=== PATIENT | male | born 1975 | race Caucasian/White ===

== ENCOUNTER 2018-03-17 12:15 | Outpatient (REF) | payer OTHER, SELFPAY ==
[2018-03-17 13:19] LABS: Bilirubin Negative (Negative); Blood Negative (Negative); Clarity Clear; Glucose Negative (Negative); Ketones Negative (Negative); Leukocyte Esterase Moderate (Negative); Nitrite Positive (Negative); Specific Gravity 1.015 (1.005-1.025); Urobilinogen 0.2 EU/dL (Up TO 0.2)
[2018-03-17 13:34] LABS: Bacteria Packed HPF (Negative); WBC >50 HPF (0-5)
[2018-03-17 13:35] LABS: C & S Indicated? Yes
== END 2018-03-17 12:35 ==
LOC: LBN 12:15
PROVIDERS: PCP Family Medicine; Visit Provider Family Medicine
DX: R82.90 Unspecified abnormal findings in urine (principal)
CPT/HCPCS: 87077; 81003; 81015; 87086; 87186

== ENCOUNTER 2018-06-07 10:47 | Outpatient (REF) | payer OTHER, SELFPAY ==
[2018-06-07 11:54] LABS: Bilirubin Negative (Negative); Blood Trace-intact (Negative); Clarity Cloudy; Glucose Negative (Negative); Ketones Negative (Negative); Leukocyte Esterase Large (Negative); Nitrite Positive (Negative); Urobilinogen 0.2 EU/dL (Up TO 0.2)
[2018-06-07 12:04] LABS: Bacteria Many HPF (Negative); C & S Indicated? Yes; Casts Negative LPF (Negative); Crystals Negative HPF (Negative); Epithelial Cells Negative HPF (Negative); Mucus Negative (Negative); Other Cells Few Transitional (Negative); RBC >50 (0-2); WBC >50 HPF (0-5)
== END 2018-06-07 11:07 ==
LOC: LBN 10:47
PROVIDERS: PCP Family Medicine; Visit Provider Family Medicine
DX: R30.0 Dysuria (principal); R82.90 Unspecified abnormal findings in urine
CPT/HCPCS: 87077; 81003; 81015; 87086; 87186

== ENCOUNTER 2018-07-29 12:38 | Outpatient (REF) | payer OTHER, SELFPAY ==
[2018-07-29 14:20] LABS: Bilirubin Negative (Negative); Blood Trace-intact (Negative); Clarity Sl Cloudy; Glucose Negative (Negative); Ketones Negative (Negative); Leukocyte Esterase Moderate (Negative); Nitrite Positive (Negative); Urobilinogen 0.2 EU/dL (Up TO 0.2)
[2018-07-29 14:37] LABS: Bacteria Many HPF (Negative); Crystals Negative HPF (Negative); Epithelial Cells Few HPF (Negative); Mucus Trace (Negative); WBC >50 HPF (0-5)
[2018-07-29 14:38] LABS: C & S Indicated? Yes
== END 2018-07-29 12:58 ==
LOC: LBN 12:38
PROVIDERS: PCP Family Medicine; Visit Provider Family Medicine
DX: R35.0 Frequency of micturition (principal)
CPT/HCPCS: 87077; 81003; 81015; 87086; 87186

== ENCOUNTER 2018-08-15 09:48 | Outpatient (CLI) | payer OTHER, SELFPAY ==
[2018-08-15 12:24] LABS: HCT 43.9 % (40.0-50.0); HGB 14.6 g/dL (13.5-17.5); Mean Corp. HGB Concentration 33.3 g/dL (32.0-36.0); Mean Corpuscular Volume 87.1 fL (80-95); Mean Platelet Volume 9.8 fL (8.0-11.0); Platelet Count 178 x1000/uL (130-400); RBC 5.04 m/cumm (4.50-6.00); RBC Distribution Width 12.8 % (11.8-14.1); White Blood Cell Count 4.27 k/cumm (4.4-10.8)
[2018-08-15 14:09] LABS: ALT 18 U/L (12-78); AST 18 U/L (15-37); Albumin 3.8 g/dL (3.4-5.0); Alkaline Phosphatase 115 U/L (46-116); Anion Gap 7.3 mmol/L (3-11); BUN 13 mg/dL (7-18); Bilirubin, Total 0.4 mg/dL (0.2-1.0); CO2 30.7 mmol/L (21.0-32.0); CREATININE 1.15 mg/dL (0.70-1.30); Calcium 9.5 mg/dL (8.5-10.1); Chloride 103 mmol/L (98-107); Cholesterol 190 mg/dL (50-200); Glucose 91 mg/dL (70-100); HDL Cholesterol 67 mg/dL (40-60); LDL CHOLESTEROL 108 mg/dL (<100); Potassium 4.5 mmol/L (3.5-5.1); Sodium 141 mmol/L (136-145); TSH (W/Ref FT4) 7.92 uIU/mL (0.358-3.74); Total Protein 7.4 g/dL (6.4-8.2); Triglyceride 54 mg/dL (30-150)
[2018-08-15 14:35] LABS: FREE T4 0.92 ng/dL (0.76-1.46)
== END 2018-08-15 10:08 ==
PROVIDERS: PCP Family Medicine; Visit Provider Family Medicine
DX: Z00.00 Encounter for general adult medical examination without abnormal findings (principal); I10 Essential (primary) hypertension; N39.0 Urinary tract infection, site not specified
CPT/HCPCS: 36415; 80053; 80061; 83721; 85027; 84439; 84443

== ENCOUNTER 2018-10-30 12:11 | Outpatient (REF) | payer OTHER, SELFPAY ==
[2018-10-30 13:42] LABS: Bilirubin Negative (Negative); Blood Negative (Negative); Clarity Clear; Glucose Negative (Negative); Ketones Negative (Negative); Leukocyte Esterase Moderate (Negative); Nitrite Negative (Negative); Urobilinogen 0.2 EU/dL (Up TO 0.2)
[2018-10-30 13:52] LABS: Bacteria Moderate HPF (Negative); C & S Indicated? Yes; Casts Negative LPF (Negative); Crystals Negative HPF (Negative); Epithelial Cells Few HPF (Negative); Mucus Negative (Negative); RBC Negative (0-2); WBC 20-50 HPF (0-5)
== END 2018-10-30 12:31 ==
LOC: LBN 12:11
PROVIDERS: PCP Family Medicine; Visit Provider Family Medicine
DX: N39.0 Urinary tract infection, site not specified (principal)
CPT/HCPCS: 87077; 81003; 81015; 87086; 87186

== ENCOUNTER 2018-11-18 18:52 | Outpatient (REF) | payer OTHER, SELFPAY ==
[2018-11-18 19:55] LABS: Bilirubin Negative (Negative); Blood Negative (Negative); Clarity Clear; Glucose Negative (Negative); Ketones Negative (Negative); Leukocyte Esterase Trace (Negative); Nitrite Positive (Negative); pH 7.5 (5-8)
[2018-11-18 20:26] LABS: Bacteria Many HPF (Negative); C & S Indicated? Yes; Casts Negative LPF (Negative); Crystals Negative HPF (Negative); Epithelial Cells Negative HPF (Negative); Mucus Negative (Negative); RBC Negative (0-2); WBC 20-50 HPF (0-5)
== END 2018-11-18 19:12 ==
LOC: LBN 18:52
PROVIDERS: PCP Family Medicine; Visit Provider Family Medicine
DX: R30.0 Dysuria (principal)
CPT/HCPCS: 87077; 81003; 81015; 87086; 87186

== ENCOUNTER 2018-12-27 19:57 | Outpatient (REF) | payer OTHER, SELFPAY ==
[2018-12-27 19:22] LABS: Bilirubin Negative (Negative); Blood Negative (Negative); Clarity Sl Cloudy (Clear); Glucose Negative (Negative); Ketones Negative (Negative); Leukocyte Esterase Trace (Negative); Nitrite Positive (Negative); Specific Gravity 1.015 (1.005-1.025); Urobilinogen 0.2 EU/dL (Up TO 0.2); pH 6.5 (5-8)
[2018-12-27 20:11] LABS: Bacteria Many HPF (Negative); Epithelial Cells Negative HPF (Negative); Other Cells Negative (Negative); RBC Negative (0-2); WBC 20-50 HPF (0-5)
[2018-12-27 20:12] LABS: C & S Indicated? Yes; Crystals Negative HPF (Negative); Mucus Negative (Negative)
== END 2018-12-27 20:17 ==
LOC: LBN 19:57
PROVIDERS: PCP Family Medicine; Visit Provider Family Medicine
DX: R35.0 Frequency of micturition (principal); R82.90 Unspecified abnormal findings in urine
CPT/HCPCS: 87077; 81003; 81015; 87086; 87186

== ENCOUNTER 2019-04-21 19:21 | Outpatient (REF) | payer OTHER, SELFPAY ==
[2019-04-21 18:45] LABS: Bilirubin Negative (Negative); Blood Negative (Negative); Clarity Sl Cloudy (Clear); Glucose Negative (Negative); Ketones Negative (Negative); Leukocyte Esterase Small (Negative); Nitrite Negative (Negative); Urobilinogen 0.2 EU/dL (Up TO 0.2)
[2019-04-21 19:50] LABS: Bacteria Moderate HPF (Negative); C & S Indicated? Yes; Casts Negative LPF (Negative); Crystals Negative HPF (Negative); Epithelial Cells Few HPF (Negative); Mucus Negative (Negative); Other Cells Negative (Negative); RBC Negative (0-2)
== END 2019-04-21 19:41 ==
LOC: NCHCN 19:21
PROVIDERS: PCP Family Medicine; Visit Provider Family Medicine
DX: R35.0 Frequency of micturition (principal); R39.15 Urgency of urination
CPT/HCPCS: 87077; 81003; 81015; 87086; 87186

== ENCOUNTER 2019-08-03 14:35 | Outpatient (REF) | payer OTHER, SELFPAY ==
[2019-08-03 16:02] LABS: Bilirubin Negative (Negative); Blood Small (Negative); Clarity Clear (Clear); Glucose Negative (Negative); Ketones Negative (Negative); Leukocyte Esterase Large (Negative); Nitrite Negative (Negative); Specific Gravity 1.015 (1.005-1.025); Urobilinogen 0.2 EU/dL (Up TO 0.2); pH 6.5 (5-8)
[2019-08-03 16:37] LABS: Bacteria Moderate HPF (Negative); C & S Indicated? Yes; WBC >50 HPF (0-5)
== END 2019-08-03 14:55 ==
LOC: LBN 14:35
PROVIDERS: PCP Family Medicine; Visit Provider Family Medicine
DX: R35.0 Frequency of micturition (principal)
CPT/HCPCS: 87077; 81003; 81015; 87086; 87186

== ENCOUNTER 2019-08-21 09:50 | Outpatient (CLI) | payer OTHER, SELFPAY ==
[2019-08-21 13:07] LABS: Absolute Lymphocyte Count 1.76 k/cumm (1.2-3.4); Absolute Monocyte Count 0.48 k/cumm (0.11-0.7); Absolute Neutrophil Count 3.76 k/cumm (1.2-6.7); HCT 44.4 % (40.0-50.0); HGB 15.3 g/dL (13.5-17.5); Lymphocytes % 29.3; Mean Corp. HGB Concentration 34.5 g/dL (32.0-36.0); Mean Corpuscular Hemoglobin 29.4 pg (27.0-33.0); Mean Corpuscular Volume 85.2 fL (80-95); Mean Platelet Volume 10.2 fL (8.0-11.0); Neutrophils % 62.7; Platelet Count 190 x1000/uL (130-400); RBC 5.21 m/cumm (4.50-6.00); RBC Distribution Width 12.7 % (11.8-14.1)
[2019-08-21 13:29] LABS: Vitamin D 25 Total 19.2 ng/ml (30-100)
[2019-08-21 13:47] LABS: ALT 24 U/L (16-63); AST 20 U/L (15-37); Albumin 3.9 g/dL (3.4-5.0); Alkaline Phosphatase 121 U/L (46-116); Anion Gap 10.9 mmol/L (3-11); BUN 13 mg/dL (7-18); Bilirubin, Total 0.3 mg/dL (0.2-1.0); CO2 28.1 mmol/L (21.0-32.0); CREATININE 0.99 mg/dL (0.70-1.30); Calcium 8.9 mg/dL (8.5-10.1); Chloride 103 mmol/L (98-107); Glucose 91 mg/dL (74-106); Potassium 4.2 mmol/L (3.5-5.1); Sodium 142 mmol/L (136-145); TSH (W/Ref FT4) 10.39 uIU/mL (0.36-3.74); Total Protein 7.1 g/dL (6.4-8.2)
[2019-08-21 14:07] LABS: FREE T4 1.03 ng/dL (0.76-1.46)
== END 2019-08-21 10:10 ==
PROVIDERS: PCP Family Medicine; Visit Provider Family Medicine
DX: I10 Essential (primary) hypertension (principal); N39.0 Urinary tract infection, site not specified; R79.89 Other specified abnormal findings of blood chemistry; Z00.00 Encounter for general adult medical examination without abnormal findings
CPT/HCPCS: 36415; 80053; 82306; 84439; 84443; 85025

== ENCOUNTER 2020-08-28 01:07 | Outpatient (CLI) | payer OTHER, SELFPAY ==
--- NOTE | 2020-08-28 13:50 | DI.RAD_ITS ---
EXAM: XR SHOULDER RT COMPLETE 2+V CLINICAL HISTORY: r shoulder pain/tingling - wheelchair bound,M25.511. TECHNIQUE: 2D digital imaging was performed. COMPARISON: CR LEFT SHOULDER COMPLETE from 07/29/2015 FINDINGS: There is no evidence of fracture or dislocation or abnormal soft tissue calcifications. Subacromial space is normal in the height. AC joint appears unremarkable. No degenerative changes evident in ei ther joint and the coracoid process is intact. No ominous osseous lesions evident. IMPRESSION: DATA REPOSITORY: RADIATION DOSE DELIVERED:
== END 2020-08-28 01:08 ==
LOC: DI 01:08
PROVIDERS: PCP Family Medicine; Visit Provider Family Medicine
DX: M25.511 Pain in right shoulder (principal)
CPT/HCPCS: 73030

== ENCOUNTER 2020-09-23 03:26 | Outpatient (CLI) | payer OTHER, SELFPAY ==
[2020-09-24 14:30] LABS: COVID-19 RT-PCR UVMMC Result Negative (Negative)
== END 2020-09-23 03:27 | disposition home or self-care (01) ==
LOC: LBO 03:26
PROVIDERS: PCP Family Medicine; Visit Provider Family Medicine
DX: Z20.828 Contact with and (suspected) exposure to other viral communicable diseases (principal)
CPT/HCPCS: U0003

== ENCOUNTER 2020-09-26 02:37 | Outpatient (CLI) | payer OTHER, SELFPAY ==
[2020-09-27 12:34] LABS: COVID-19 RT-PCR UVMMC Result Negative (Negative)
== END 2020-09-26 02:38 | disposition home or self-care (01) ==
LOC: LBO 02:37
PROVIDERS: PCP Family Medicine; Visit Provider Family Medicine
DX: Z20.828 Contact with and (suspected) exposure to other viral communicable diseases (principal)
CPT/HCPCS: U0003

== ENCOUNTER 2020-10-01 03:18 | Outpatient (CLI) | payer OTHER, SELFPAY ==
[2020-10-02 15:52] LABS: COVID-19 RT-PCR UVMMC Result Negative (Negative)
== END 2020-10-01 03:19 | disposition home or self-care (01) ==
LOC: LBO 03:19
PROVIDERS: PCP Family Medicine; Visit Provider Family Medicine
DX: Z20.828 Contact with and (suspected) exposure to other viral communicable diseases (principal)
CPT/HCPCS: U0003

== ENCOUNTER 2021-07-17 17:58 | Outpatient (REF) | payer OTHER, SELFPAY ==
[2021-07-17 19:23] LABS: Bilirubin Negative (Negative); Blood Moderate (Negative); Clarity Sl Cloudy (Clear); Glucose Negative (Negative); Ketones Negative (Negative); Leukocyte Esterase Large (Negative); Nitrite Negative (Negative); Urobilinogen 0.2 EU/dL (Up TO 0.2); pH 6.5 (5-8)
[2021-07-17 19:42] LABS: Bacteria Many HPF (Negative); C & S Indicated? Yes; WBC >50 HPF (0-5)
== END 2021-07-17 17:59 | disposition home or self-care (01) ==
LOC: LBN 17:58
PROVIDERS: PCP Family Medicine; Visit Provider Family Medicine
DX: R35.0 Frequency of micturition (principal); R39.15 Urgency of urination; R82.90 Unspecified abnormal findings in urine
CPT/HCPCS: 87077; 81003; 81015; 87086; 87186

== ENCOUNTER 2022-01-26 09:42 | Outpatient (CLI) | payer OTHER, SELFPAY ==
[2022-01-26 12:19] LABS: Abs Immature Grans 0.03 10^3/uL (0.0-0.06); Absolute Basophil Count 0.01 10^3/uL (0.0-0.2); Absolute Lymphocyte Count 1.91 10^3/uL (1.2-3.4); Absolute Monocyte Count 1.07 10^3/uL (0.1-0.8); Absolute Neutrophil Count 6.57 10^3/uL (1.2-6.7); Basophils % 0.1; HCT 44.8 % (40.0-50.0); HGB 15.3 g/dL (13.5-17.5); Immature Grans % 0.3; Lymphocytes % 19.9; MCHC 34.2 % (32.0-36.0); MCV 88 fL (80-95); MPV 10.2 fL (8.0-11.0); Monocytes % 11.2; Neutrophils % 68.5; Platelet Count 204 10^3/uL (130-400); RDW 13.2 % (11.8-14.1); RDW-SD 42.6 fL; WBC 9.59 10^3/uL (4.4-10.8)
[2022-01-26 12:44] LABS: ALT 23 U/L (16-63); AST 25 U/L (15-37); Albumin 3.5 g/dL (3.4-5.0); Alkaline Phosphatase 109 U/L (46-116); Anion Gap 8.2 mmol/L (3-11); BUN 22 mg/dL (7-18); Bilirubin, Total 0.4 mg/dL (0.2-1.0); CO2 28.8 mmol/L (21.0-32.0); CREATININE 1.3 mg/dL (0.70-1.30); Calcium 9.2 mg/dL (8.5-10.1); Chloride 103 mmol/L (98-107); Estimated GFR 59.43 (mL/min/1.73m2); Glucose 106 mg/dL (74-106); Potassium 4.1 mmol/L (3.5-5.1); Sodium 140 mmol/L (136-145); TSH (W/Ref FT4) 12.19 uIU/mL (0.36-3.74); Total Protein 7.3 g/dL (6.4-8.2)
[2022-01-26 13:09] LABS: FREE T4 0.87 ng/dL (0.76-1.46)
== END 2022-01-26 09:43 | disposition home or self-care (01) ==
LOC: LOS 09:43
PROVIDERS: PCP Family Medicine; Visit Provider Family Medicine
DX: R00.0 Tachycardia, unspecified (principal); R01.1 Cardiac murmur, unspecified
CPT/HCPCS: 36415; 80053; 84439; 84443; 85025

== ENCOUNTER 2022-02-06 02:01 | Outpatient (RCR) | payer OTHER, SELFPAY ==
--- NOTE | 2022-02-06 14:45 | HOLTER_ITS ---
APPROVED REPORT Conclusion This is a 48-hour Holter monitor ordered for tachycardia Predominant rhythm was sinus. Average heart rate was 84. Minimum was 50, maximum 124 There were very rare isolated atrial and ventricular ectopic beats There was no atrial fibrillation, no high-grade AV block, no pauses greater than 3 seconds No patient symptoms were reported
== END 2022-03-04 23:59 | disposition home or self-care (01) ==
LOC: RT 02:01
PROVIDERS: PCP Family Medicine; Visit Provider Family Medicine
DX: R00.0 Tachycardia, unspecified (principal); R01.1 Cardiac murmur, unspecified
CPT/HCPCS: 93225; 93226

== ENCOUNTER → 2022-03-03 00:55 | Outpatient (CLI) | payer OTHER, SELFPAY ==
--- NOTE | 2022-03-03 16:02 | DI.US_ITS ---
APPROVED REPORT EXAM: Comprehensive 2D, Doppler, and color-flow Echocardiogram Patient Location: Out-Patient Equal Opportunity Representative: Naomi Cope RDCS (AE) Indications: Edema, Murmur, Tachycardia Other Information Study Quality: Adequate Conclusion Technically difficult but adequate study Normal left ventricular wall thickness and chamber size. Estimated ejection fraction is 60%. Wall m otion is normal Normal right ventricular size and systolic function Both atria are normal in size Aortic valve is trileaflet and mildly sclerotic without stenosis or regurgitation There are no additional structural or hemodynamically significant valvular abnormalities Wall motion Left Ventricle The left ventricle is normal size. The left ventricular systolic function is normal. The left ventric ular ejection fraction is within the normal range. There is normal left ventricular wall thickness. T here is normal LV segmental wall motion. There is no ventricular septal defect visualized. LVEF is 60 %. Right Ventricle The right ventricle is normal size. The right ventricular systolic function is normal. Atria The left atrium size is normal. The right atrium size is normal. The interatrial septum is intact wit h no evidence for an atrial septal defect. Aortic Valve Aortic valve is trileaflet and mildly sclerotic There is no aortic valvular stenosis. No aortic regur gitation is present. Mitral Valve The mitral valve is normal in structure. No evidence of mitral valve stenosis. Trace mitral regurgita tion. Tricuspid Valve The tricuspid valve is normal in structure. There is no tricuspid valve stenosis. Trace tricuspid reg urgitation. Unable to assess PA pressure. Pulmonic Valve Pulmonic valve is not well visualized. There is no pulmonic valvular stenosis. There is no pulmonic v alvular regurgitation. Great Vessels The aortic root is normal in size. Ascending aorta is not well visualized. Aortic arch is not well vi sualized. IVC is normal in size and collapses >50% with inspiration. Pericardium There is no pericardial effusion. 2D Dimensions IVSD d PLAX 0.76 cm M: 0.6-1.2 LV Vol A2C d MOD 102.1 mL LVPW d PLAX 0.75 cm M: 0.6 - 1.2 LV Vol A4C d MOD 79.6 mL LVID d PLAX 4.30 cm M: 4.2 - 5.8 LA vol/ BSA A2C s A-L 16.5 mL/m2 LVDs 2.85 cm M: 2.5 - 4.0 LA vol/ BSA A4C s A-L 9.9 mL/m2 Ao Root d 2.73 cm M: 3.1 - 3.7 LA Vol/ BSA Biplane s A-L 13.2 mL/m2 RA Area A4C 8.81 cm2 LA Area A4C s MOD 9.61 cm2 RA Vol/ BSA A4C s A-L 8.8 mL/m2 LA Area A2C s MOD 12.80 cm2 LV EF Teichholz 62.6 % LV EF A4C MOD 59.9 % LVEF (Ibarra's) 60.38 % M: 52 - 72 LV EF A2C MOD 59.8 % LV Volume 69.79 mL M: 62 - 150 LV EF Biplane MOD 60.4 % LV Volume Index 36.34 mL/m2 M: 34 - 74 SV 55.38 mL LV Vol Biplane MOD 91.7 mL SV Index 28.89 mL/m2 FS 33.50 % M-Mode TAPSE 1.80 cm (M/F) >1.7 LV Diastology MV E' medial 0.106 (>0.07 m/s) E/A Ratio 1.1 LV E/e MED 7.85 (<14) MV E Vmax 0.84 (0.4-1.3 m/s) MV E' lateral 0.138 (>0.1 m/s) MV A Vmax 0.75 (0.4-1.3 m/s) LV E/e LAT 6.05 (<14) MV E/A Ratio 1.05 MV E/E' medial 7.87 MV E/E' lateral 6.06 Aortic Valve LVOT Area 3.16 cm2 AoV Area Vmax 2.95 cm2 LVOT Vmax 1.26 m/s AoV Area/ BSA (Vmax) 1.54 cm2/m2 LVOT Mean Sergei. 0.84 m/s ROSAURA Mean Sergei. 2.82 cm2 LVOT Peak Grad 6.3 mmHg ROSAURA Mean Sergei. Index 1.47 cm2/m2 LVOT Mean Grad 3.2 mmHg LVOT VTI 0.216 m LVOT Diam s 2.00 cm AoV Vmax 1.35 m/s Velocity Ratio 0.93 AoV Mean Sergei. 0.94 m/s AoV Peak Grad 7.3 mmHg LVOT SV 68.34 mL AoV Mean Grad 3.9 mmHg AoV VTI 0.223 m AoV Area VTI 3.06 cm2 AoV Area/ BSA (VTI) 1.60 cm/m2 Mitral Valve MV DT 353 (160-240 msec) MV PHT 102 msec MV Area PHT 2.15 cm2 Pulmonary Valve RVOT Peak Gr. 2.58 mmHg RVOT Mean Gr. 1.75 mmHg RVOT VTI 0.142 m RVOT Vmax 0.80 m/s
== END ==
PROVIDERS: PCP Family Medicine; Visit Provider Family Medicine
DX: R00.0 Tachycardia, unspecified (principal); R01.1 Cardiac murmur, unspecified
CPT/HCPCS: 93306

== ENCOUNTER 2023-04-28 12:09 | Outpatient (REF) | payer OTHER, SELFPAY ==
[2023-04-28 13:54] LABS: Bilirubin Negative (Negative); Blood Negative (Negative); Clarity Clear (Clear); Glucose Negative (Negative); Ketones Negative (Negative); Leukocyte Esterase Negative (Negative); Nitrite Negative (Negative); Specific Gravity 1.015 (1.005-1.025); Urobilinogen 0.2 mg/dL (Up to 0.2); pH 7.5 (5-8)
== END 2023-04-28 12:10 | disposition home or self-care (01) ==
LOC: LBN 12:09
PROVIDERS: PCP Family Medicine; Visit Provider Family Medicine
DX: M54.9 Dorsalgia, unspecified (principal)
CPT/HCPCS: 81003

== ENCOUNTER 2023-06-18 15:37 | Outpatient (REF) | payer OTHER, SELFPAY ==
[2023-06-18 13:47] LABS: Bilirubin Negative (Negative); Blood Trace-intact (Negative); Clarity Cloudy (Clear); Glucose Negative (Negative); Ketones Negative (Negative); Leukocyte Esterase Large (Negative); Nitrite Negative (Negative); Specific Gravity <= 1.005 (1.005-1.025); Urobilinogen 0.2 mg/dL (Up to 0.2)
[2023-06-18 14:06] LABS: Bacteria Moderate HPF (Negative); C & S Indicated? Yes; Casts Negative LPF (Negative); Crystals Negative HPF (Negative); Epithelial Cells Rare HPF (Negative); Mucus Negative (Negative); WBC >50 HPF (0-5)
== END 2023-06-18 15:38 | disposition home or self-care (01) ==
LOC: LBN 15:37
PROVIDERS: PCP Family Medicine; Visit Provider Family Medicine
DX: R35.0 Frequency of micturition (principal)
CPT/HCPCS: 87077; 81003; 81015; 87086; 87186

== ENCOUNTER → 2023-07-27 03:04 | Outpatient (CLI) | payer OTHER, SELFPAY ==
--- NOTE | 2023-07-27 09:45 | DI.RAD_ITS ---
Exam(s) XR SHOULDER RT COMPLETE 2+V EXAM: XR SHOULDER RT COMPLETE 2+V CLINICAL HISTORY: shoulder pain,M25.519. TECHNIQUE: 2D digital imaging was performed of the right shoulder. Five images were obtained. AP, Grashey, Y-view and axillary views were obtained. COMPARISON: CR XR SHOULDER RT COMPLETE 2+V from 08/28/2020 FINDINGS: BONES: No acute fracture is present. No bony destructive lesion is seen. JOINTS: No dislocation present. The acromioclavicular and glenohumeral joints are unremarkable. SOFT TISSUE: The visualized lung diallo are clear. IMPRESSION: Unremarkable radiographs of the right shoulder. DATA REPOSITORY: RADIATION DOSE DELIVERED:
--- NOTE | 2023-07-27 09:53 | DI.RAD_ITS ---
Exam(s) XR SHOULDER LT COMPLETE 2+V EXAM: XR SHOULDER LT COMPLETE 2+V CLINICAL HISTORY: shoulder pain,M25.519. TECHNIQUE: 2D digital imaging was performed of the left shoulder. Six images were obtained. AP, Gr ashey, Y-view and axillary views were obtained. COMPARISON: CR LEFT SHOULDER COMPLETE from 07/29/2015 FINDINGS: BONES: No acute fracture is present. No bony destructive lesion is seen. JOINTS: No dislocation present. The acromioclavicular and glenohumeral joints are unremarkable. SOFT TISSUE: Visualized lungs are clear. IMPRESSION: Unremarkable radiographs of the left shoulder. DATA REPOSITORY: RADIATION DOSE DELIVERED:
== END ==
PROVIDERS: PCP Family Medicine; Visit Provider Family Medicine
DX: M25.511 Pain in right shoulder (principal); M25.512 Pain in left shoulder
CPT/HCPCS: 73030

== ENCOUNTER 2023-08-10 11:30 | Outpatient (REF) | payer OTHER, SELFPAY ==
[2023-08-10 12:42] LABS: Bilirubin Negative (Negative); Blood Negative (Negative); Clarity Sl Cloudy (Clear); Glucose Negative (Negative); Ketones Negative (Negative); Leukocyte Esterase Moderate (Negative); Nitrite Negative (Negative); Specific Gravity 1.015 (1.005-1.025); Urobilinogen 0.2 mg/dL (Up to 0.2)
[2023-08-10 12:56] LABS: Bacteria Few HPF (Negative); C & S Indicated? Yes; Casts Negative LPF (Negative); Crystals Negative HPF (Negative); Epithelial Cells Rare HPF (Negative); Mucus Negative (Negative); RBC 0-2 HPF (0-2)
== END 2023-08-10 11:31 | disposition home or self-care (01) ==
LOC: LBN 11:30
PROVIDERS: PCP Family Medicine; Visit Provider Family Medicine
DX: R35.0 Frequency of micturition (principal)
CPT/HCPCS: 87077; 81003; 81015; 87086; 87186

== ENCOUNTER → 2023-09-08 01:31 | Outpatient (CLI) | payer OTHER, SELFPAY ==
--- NOTE | 2023-09-08 09:55 | DI.MRI_ITS ---
Exam(s) MR UPPER JOINT LT WO EXAM: MR UPPER JOINT LT WO CLINICAL HISTORY: SHOULDER PAIN,bilat, m25.519. TECHNIQUE: Multiplanar multisequence MRI was performed. COMPARISON: Plain films 27 July 2023 FINDINGS: Exam somewhat limited by motion. BONES: There is no fracture or contusion pattern. JOINTS:The acromioclavicular joint is normal. The glenohumeral joint is normal. TENDONS: Supraspinatus: Some edema within tendon consistent with partial tear or tendinitis. Infraspinatus: Unremarkable. Subscapularis: Unremarkable. Teres Minor: Unremarkable. Biceps and [place]: Some fluid within biceps tendon sheath but no tendon abnormality. MUSCLES: Unremarkable. GLENOID LABRUM: Unremarkable on this noncontrast examination. SOFT TISSUES: Unremarkable. OTHER: Subacromial and subdeltoid bursae shows mild edema. Small amount of fluid in sub coracoid bu rsa.. IMPRESSION: Supraspinatus tendinitis versus partial tear. DATA REPOSITORY:
--- NOTE | 2023-09-08 10:30 | DI.MRI_ITS ---
Exam(s) MR UPPER JOINT RT WO EXAM: MR UPPER JOINT RT WO CLINICAL HISTORY: SHOULDER PAIN,bilat, m25.519. TECHNIQUE: Multiplanar multisequence MRI was performed. COMPARISON: Plain films July 28 FINDINGS: BONES: There is no fracture or contusion pattern. Small degenerative cysts in the humeral head post erior superiorly as well as at the lesser tuberosity. JOINTS:The acromioclavicular joint shows mild degenerative changes and a small amount of fluid. The glenohumeral joint is normal. TENDONS: Supraspinatus: Mildly increased signal distally could indicate tendinitis or partial tear. Infraspinatus: Unremarkable. Subscapularis: Unremarkable. Teres Minor: Unremarkable. Biceps and [place]: Thickening and in some edema in the proximal biceps tendon as it passes at the ant erosuperior aspect of the humeral head. Some fluid in the biceps tendon sheath. MUSCLES: Unremarkable. GLENOID LABRUM: Unremarkable on this noncontrast examination. SOFT TISSUES: Unremarkable. OTHER: Subacromial and subdeltoid bursae shows mild edema. Small amount of fluid in subcoracoid burs a. . IMPRESSION: Tendinitis versus partial tear of distal anterior supraspinatus tendon. Tendinosis of superior bicep s tendon. DATA REPOSITORY:
== END ==
PROVIDERS: PCP Family Medicine; Visit Provider Student in an Organized Health Care Education/Training Program
DX: M75.22 Bicipital tendinitis, left shoulder (principal); M75.21 Bicipital tendinitis, right shoulder
CPT/HCPCS: 73221

== ENCOUNTER 2023-11-22 10:21 | Outpatient (REF) | payer OTHER, SELFPAY ==
[2023-11-22 12:38] LABS: Bilirubin Negative (Negative); Blood Trace-intact (Negative); Clarity Sl Cloudy (Clear); Glucose Negative (Negative); Ketones Negative (Negative); Leukocyte Esterase Moderate (Negative); Nitrite Negative (Negative); Urobilinogen 0.2 mg/dL (Up to 0.2)
[2023-11-22 13:55] LABS: Bacteria Few HPF (Negative); C & S Indicated? Yes; Casts Negative LPF (Negative); Crystals Negative HPF (Negative); Epithelial Cells Negative HPF (Negative); Mucus Negative (Negative); Other Cells Negative (Negative); RBC 0-2 HPF (0-2); WBC >50 HPF (0-5)
== END 2023-11-22 10:22 | disposition home or self-care (01) ==
LOC: LBN 10:21
PROVIDERS: PCP Family Medicine; Visit Provider Family Medicine
DX: R82.89 Other abnormal findings on cytological and histological examination of urine (principal); N39.0 Urinary tract infection, site not specified
CPT/HCPCS: 81003; 81015; 87086

== ENCOUNTER 2024-03-15 08:54 | Outpatient (REF) | payer OTHER, SELFPAY ==
[2024-03-15 13:50] LABS: Bilirubin Negative (Negative); Blood Large (Negative); Clarity Clear (Clear); Glucose Negative (Negative); Ketones Negative (Negative); Leukocyte Esterase Moderate (Negative); Nitrite Negative (Negative); Specific Gravity 1.015 (1.005-1.025); Urobilinogen 0.2 mg/dL (Up to 0.2); pH 7.5 (5-8)
[2024-03-15 14:10] LABS: Bacteria Moderate HPF (Negative); C & S Indicated? Yes; Casts Negative LPF (Negative); Crystals Negative HPF (Negative); Epithelial Cells Few HPF (Negative); Mucus Trace (Negative); RBC >50 HPF (0-2); WBC 20-50 HPF (0-5)
== END 2024-03-15 08:55 | disposition home or self-care (01) ==
LOC: LBN 08:54
PROVIDERS: PCP Family Medicine; Visit Provider Family Medicine
DX: R30.0 Dysuria (principal)
CPT/HCPCS: 87077; 81003; 81015; 87086

== ENCOUNTER 2024-07-17 04:28 | Outpatient (CLI) | payer OTHER, SELFPAY ==
[2024-07-17 12:53] LABS: HCT 43.8 % (40.0-50.0); HGB 14.3 g/dL (13.5-17.5); MCH 29.7 pg (27.0-33.0); MCHC 32.6 % (32.0-36.0); MCV 91 fL (80-95); MPV 9.4 fL (8.0-11.0); Platelet Count 208 10^3/uL (130-400); RBC 4.81 10^6/uL (4.36-5.78); RDW 12.2 % (11.8-14.1); RDW-SD 40.7 fL; WBC 5.69 10^3/uL (4.4-10.8)
[2024-07-17 13:11] LABS: Hemoglobin A1C 5.4 % (<5.7)
[2024-07-17 13:40] LABS: ALT 22 U/L (16-63); AST 20 U/L (15-37); Albumin 3.8 g/dL (3.4-5.0); Alkaline Phosphatase 139 U/L (46-116); Anion Gap 8.7 mmol/L (3-11); BUN 17 mg/dL (7-18); CO2 30.3 mmol/L (21.0-32.0); CREATININE 1.3 mg/dL (0.70-1.30); Calcium 9.5 mg/dL (8.5-10.1); Calculated LDL 120 mg/dL (<100); Chloride 102 mmol/L (98-107); Cholesterol 211 mg/dL (<200); Estimated GFR 67.76 (mL/min/1.73m2); Glucose 88 mg/dL (74-106); HDL Cholesterol 77 mg/dL (40-60); Potassium 3.7 mmol/L (3.5-5.1); Sodium 141 mmol/L (136-145); TSH (W/Ref FT4) 16.46 uIU/mL (0.36-3.74); Total Protein 7.7 g/dL (6.4-8.2); Triglyceride 74 mg/dL (<150); Vitamin B12 1770 pg/mL (193-986)
[2024-07-17 13:56] LABS: FREE T4 0.81 ng/dL (0.76-1.46)
== END 2024-07-17 04:29 | disposition home or self-care (01) ==
LOC: LOS 04:29
PROVIDERS: PCP Family Medicine; Referring Provider Family Medicine; Visit Provider Family Medicine
DX: E03.9 Hypothyroidism, unspecified (principal); Z00.00 Encounter for general adult medical examination without abnormal findings; I10 Essential (primary) hypertension; R53.83 Other fatigue
CPT/HCPCS: 36415; 80053; 80061; 85027; 82607; 83036; 84439; 84443

== ENCOUNTER 2024-09-12 03:09 | Outpatient (CLI) | payer OTHER, SELFPAY ==
[2024-09-12 17:38] LABS: TSH (W/Ref FT4) 5.87 uIU/mL (0.36-3.74)
[2024-09-13 20:21] LABS: T4, Free 1.4 ng/dL (0.8-2.2)
[2024-09-14 17:37] LABS: Thyroglobulin Antibody 518 IU/mL (<1.8); Thyroglobulin Tumor Marker 0.2 ng/mL
== END 2024-09-12 03:10 | disposition home or self-care (01) ==
PROVIDERS: PCP Family Medicine; Visit Provider Family Medicine
DX: E03.9 Hypothyroidism, unspecified (principal)
CPT/HCPCS: 36415; 84432; 84439; 84443; 86800

== ENCOUNTER 2024-09-26 03:06 | Outpatient (CLI) | payer OTHER, SELFPAY ==
[2024-09-26 13:18] LABS: TSH (W/Ref FT4) 8.39 uIU/mL (0.36-3.74)
[2024-09-26 13:46] LABS: Bilirubin Negative (Negative); Blood Negative (Negative); Clarity Clear (Clear); Glucose Negative (Negative); Ketones Negative (Negative); Leukocyte Esterase Trace (Negative); Nitrite Negative (Negative); Urobilinogen 0.2 mg/dL (Up to 0.2); pH 7.5 (5-8)
[2024-09-26 13:55] LABS: Bacteria Rare HPF (Negative); C & S Indicated? Yes; Casts Negative LPF (Negative); Crystals Negative HPF (Negative); Epithelial Cells Rare HPF (Negative); Mucus Negative (Negative); RBC Negative HPF (0-2)
[2024-09-26 22:55] LABS: T4, Free 1.2 ng/dL (0.8-2.2)
== END 2024-09-26 03:07 | disposition home or self-care (01) ==
LOC: LBO 03:06
PROVIDERS: PCP Family Medicine; Visit Provider Family Medicine
DX: E03.9 Hypothyroidism, unspecified (principal); N39.0 Urinary tract infection, site not specified
CPT/HCPCS: 36415; 81003; 81015; 84439; 84443; 87086

== ENCOUNTER 2024-10-12 12:39 | Outpatient (REF) | payer BC, SELFPAY ==
[2024-10-12 13:05] LABS: Bilirubin Negative (Negative); Blood Negative (Negative); Clarity Clear (Clear); Glucose Negative (Negative); Ketones Negative (Negative); Leukocyte Esterase Large (Negative); Nitrite Negative (Negative); Urobilinogen 0.2 mg/dL (Up to 0.2); pH 6.5 (5-8)
[2024-10-12 13:18] LABS: Bacteria Packed HPF (Negative); Epithelial Cells Rare HPF (Negative); RBC Negative HPF (0-2); WBC >50 HPF (0-5)
[2024-10-12 13:19] LABS: C & S Indicated? Yes; Crystals Negative HPF (Negative); Mucus Negative (Negative)
== END 2024-10-12 12:40 | disposition home or self-care (01) ==
LOC: LBN 12:39
PROVIDERS: PCP Family Medicine; Visit Provider Family Medicine
DX: I89.0 Lymphedema, not elsewhere classified (principal)
CPT/HCPCS: 87077; 81003; 81015; 87086; 87186

== ENCOUNTER 2024-11-16 08:20 | Outpatient (REF) | payer BC, SELFPAY ==
[2024-11-16 13:28] LABS: Bilirubin Negative (Negative); Blood Small (Negative); Clarity Sl Cloudy (Clear); Glucose Negative (Negative); Ketones Negative (Negative); Leukocyte Esterase Large (Negative); Nitrite Negative (Negative); Urobilinogen 0.2 mg/dL (Up to 0.2)
[2024-11-16 13:39] LABS: Bacteria Few HPF (Negative); C & S Indicated? Yes; Casts Negative LPF (Negative); Crystals Negative HPF (Negative); Epithelial Cells Rare HPF (Negative); Mucus Negative (Negative); WBC >50 HPF (0-5)
== END 2024-11-16 08:21 | disposition home or self-care (01) ==
LOC: LBN 08:20
PROVIDERS: PCP Family Medicine; Visit Provider Family Medicine
DX: N39.0 Urinary tract infection, site not specified (principal); R82.89 Other abnormal findings on cytological and histological examination of urine
CPT/HCPCS: 87077; 81003; 81015; 87086; 87186

== ENCOUNTER 2025-01-17 18:41 | Outpatient (REF) | payer BC, SELFPAY ==
[2025-01-17 22:20] LABS: C & S Indicated? Yes; Glucose >=1000 mg/dL (Negative); WBC >50 HPF (0-5)
== END 2025-01-17 18:42 | disposition home or self-care (01) ==
LOC: LBN 18:41
PROVIDERS: PCP Family Medicine; Visit Provider Family Medicine
DX: N39.0 Urinary tract infection, site not specified (principal)
CPT/HCPCS: 87077; 81003; 81015; 87086; 87186

== ENCOUNTER 2025-01-19 00:59 | Outpatient (CLI) | payer BC, SELFPAY ==
[2025-01-19 12:55] LABS: TSH (W/Ref FT4) 8.59 uIU/mL (0.36-3.74)
== END 2025-01-19 01:00 | disposition home or self-care (01) ==
LOC: LOS 00:59
PROVIDERS: PCP Family Medicine; Visit Provider Family Medicine
DX: E06.3 Autoimmune thyroiditis (principal); E03.9 Hypothyroidism, unspecified
CPT/HCPCS: 36415; 84439; 84443; 86376

== ENCOUNTER 2025-02-12 07:55 | Outpatient (CLI) | payer BC, SELFPAY ==
--- NOTE | 2025-02-12 07:45 | RT.EKG_ITS ---
APPROVED REPORT Exam: Resting ECG Reason for Exam: CP and SOB Patient Location: O HR:106 bpm ECG Measurements Heart Rate 106 AXIS ND 146 P 52 QRSd 82 QRS 6 QT 321 T 41 QTc 427 Conclusion Sinus tachycardia...rate> 99 Probable left atrial enlargement...P >50mS, <-0.10mV V1 Anterior infarct, old...Q >40mS, abnormal ST-T, V2-V5
== END 2025-02-12 07:56 | disposition home or self-care (01) ==
PROVIDERS: PCP Family Medicine; Visit Provider Family Medicine
DX: R07.9 Chest pain, unspecified (principal); R06.02 Shortness of breath; R00.0 Tachycardia, unspecified
CPT/HCPCS: 93010

== ENCOUNTER 2025-02-12 09:17 | Outpatient (CLI) | payer BC, SELFPAY ==
[2025-02-12 11:18] LABS: Abs Immature Grans 0.04 10^3/uL (0.0-0.06); HCT 42.5 % (40.0-50.0); HGB 15.1 g/dL (13.5-17.5); Immature Grans % 0.4 %; MCH 29.8 pg (27.0-33.0); MCHC 35.5 % (32.0-36.0); MCV 84 fL (80-95); MPV 9.7 fL (8.0-11.0); Platelet Count 220 10^3/uL (130-400); RBC 5.06 10^6/uL (4.36-5.78); RDW 12.8 % (11.8-14.1); RDW-SD 38.6 fL; WBC 8.91 10^3/uL (4.4-10.8)
[2025-02-12 11:50] LABS: ALT 37 U/L (16-63); AST 18 U/L (15-37); Albumin 3.9 g/dL (3.4-5.0); Alkaline Phosphatase 233 U/L (46-116); Anion Gap 21.8 mmol/L (3-11); BUN 15 mg/dL (7-18); Bilirubin, Total 0.6 mg/dL (0.2-1.0); CO2 16.2 mmol/L (21.0-32.0); Calcium 9.7 mg/dL (8.5-10.1); Chloride 96 mmol/L (98-107); Estimated GFR 82.29 (mL/min/1.73m2); Glucose 439 mg/dL (74-106); Potassium 3.8 mmol/L (3.5-5.1); Sodium 134 mmol/L (136-145); Total Protein 8.1 g/dL (6.4-8.2)
[2025-02-12 12:45] LABS: Lab Add On Test DONE
[2025-02-12 12:53] LABS: ESR 28 mm/hr (0-15)
[2025-02-12 13:00] LABS: C-Reactive Protein 3.14 mg/dL (<or=0.5)
[2025-02-12 13:15] LABS: Hemoglobin A1C 11.3 % (<5.7)
[2025-02-12 19:58] LABS: Dexamethasone Suppression 24.8 ug/dL (See Note)
[2025-02-14 11:26] LABS: Adrenocorticotropic Hormone, P 8.1 pg/mL
== END 2025-02-12 09:18 | disposition home or self-care (01) ==
LOC: LOS 09:18
PROVIDERS: PCP Family Medicine; Visit Provider Family Medicine
DX: R53.83 Other fatigue (principal); R01.1 Cardiac murmur, unspecified; E03.9 Hypothyroidism, unspecified; R63.8 Other symptoms and signs concerning food and fluid intake; I10 Essential (primary) hypertension; R73.09 Other abnormal glucose
CPT/HCPCS: 36415; 80053; 82533; 85652; 82024; 83036; 85025; 86140

== ENCOUNTER 2025-02-12 13:40 | Inpatient (IN) | payer BC, SELFPAY ==
[2025-02-12] VITALS (51 sets, daily range): BP systolic 114–153; BP diastolic 70–94; PULSE 75–122; RESP 11–27; TEMP 36.6–37.3; O2SAT 96–100
[2025-02-12 13:59] LABS: Abs Immature Grans 0.03 10^3/uL (0.0-0.06); BE (Venous) -15 mmol/L (-2-3); HCO3 (Venous) 13 mmol/L (23-28); HCT 39.7 % (40.0-50.0); HGB 14.1 g/dL (13.5-17.5); Immature Grans % 0.3 %; MCH 29.4 pg (27.0-33.0); MCHC 35.5 % (32.0-36.0); MCV 83 fL (80-95); MPV 10.0 fL (8.0-11.0); O2 Sat (Venous) 94 %; Platelet Count 220 10^3/uL (130-400); RBC 4.80 10^6/uL (4.36-5.78); RDW 12.7 % (11.8-14.1); RDW-SD 38.2 fL; TCO2 (Venous) 12 mmol/L (24-29); WBC 8.93 10^3/uL (4.4-10.8); pCO2 (Venous) 30 mmHg (41-51); pO2 (Venous) 69 mmHg
--- NOTE | 2025-02-12 14:00 | DI.RAD_ITS ---
Exam(s) XR CHEST 2V PA LATERAL EXAM: XR CHEST 2V PA LATERAL CLINICAL HISTORY: SOB/CP, new DKA TECHNIQUE: 2D digital imaging was performed of the chest. Two images were obtained. AP and lateral views were obtained. COMPARISON: CR XR SHOULDER RT COMPLETE 2+V from 08/28/2020 CR XR SHOULDER RT COMPLETE 2+V from 07/27/2023 CR XR SHOULDER LT COMPLETE 2+V from 07/27/2023 MR MR UPPER JOINT RT WO from 09/08/2023 FINDINGS: MEDIASTINUM: Normal. HEART: Normal. PULMONARY VASCULATURE: Normal. LUNGS: Clear. PLEURAL SPACE: No pleural effusion or pneumothorax. BONE:Within normal limits for the patient's age. There are compression deformities of T5 and T6. They appear chronic with well corticated margins. There is slight exaggeration of the kyphosis at this level. Degenerative changes are present throughout the thoracic spine. OTHER FINDINGS:Normal. IMPRESSION: 1. No acute pulmonary findings. 2. Compression deformities of T5 and T6 which appear chronic. Please correlate with patient's clinical history. DATA REPOSITORY: RADIATION DOSE DELIVERED:
[2025-02-12] MEDS: Lactated Ringers 1,000 ML 1000 ML IV (14:12)
--- NOTE | 2025-02-12 14:29 | W.ED.GENAD ---
Discharge Plan Disposition Patient Disposition: Admit to [facility] Condition: Fair Discharge Details Clinical Impression: DKA (diabetic ketoacidosis) Admit Date/Time: 02/12/25 15:47 Admit Provider: Luis Armando Carrasquillo Attending Provider: Luis Armando Carrasquillo Primary Care Provider: Maggi Carey ED Provider: Valarie Kaur HPI General Mode of arrival: wheelchair. Date/Time Provider Initiated Documentation: 02/12/25 13:47. Limitations to Documentation: no limitations. Information obtained by: patient, RN/MD and old records reviewed. HPI Narrative: This is a 49-year-old male patient with a past medical history significant for autoimmune disease including [place]'s disease, vitiligo, no history of diabetes, history of paraplegia following a spinal cord injury, self caths, history of hypertension, presenting for evaluation given in outpatient providers concern for DKA. The patient has had approximately 2 weeks of increased thirst and urination. He reports that he has noted white sediment in his urine, no foul odors or other changes. He states that he had a an A1c in the last 6 months that was borderline for prediabetes, does not take any diabetic medications. The patient had laboratory studies today which showed an elevated glucose into the 400s, a decreased CO2 and was concerning for diabetic ketoacidosis. He was sent to our facility for further workup and management. The patient reports that he has felt slightly short of breath, and has had heaviness in his chest. He states that he has not had cough or fever, dysuria, or abdominal pain. Related Data Home Medications ?Medication ?Instructions ?Recorded ?Confirmed catheter 12 Fr (Bard Coude Tip #250 ea 07/28/17 02/12/25 Catheter) sildenafil 100 mg tablet (Viagra) 100 mg PO DAILY PRN sexual 09/01/21 02/12/25 activity #50 tab-caps hyoscyamine sulfate 0.375 mg 0.375 mg PO BID #180 tab-caps 08/09/24 02/12/25 tablet,extended release,12 hr imipramine HCl 25 mg tablet 50 mg (2 x 25 mg) PO BID #360 08/09/24 02/12/25 tab-caps oxybutynin chloride 5 mg tablet 10 mg (2 x 5 mg) PO BID #360 08/09/24 02/12/25 tab-caps ergocalciferol (vitamin D2) 1,250 50,000 unit PO QWEEK #13 caps 10/09/24 02/12/25 mcg (50,000 unit) capsule amlodipine 5 mg tablet 5 mg PO DAILY #90 tabs 10/11/24 02/12/25 baclofen 20 mg tablet 60 mg (3 x 20 mg) PO BID #540 10/20/24 02/12/25 tab-caps ciprofloxacin HCl 500 mg tablet 500 mg PO BID #14 tabs 01/18/25 02/12/25 sulfamethoxazole 800 1 tab PO BID #28 tabs 01/18/25 02/12/25 mg-trimethoprim 160 mg tablet (Bactrim DS) levothyroxine 75 mcg tablet 75 mcg PO DAILY #90 tabs 01/21/25 02/12/25 donepezil 10 mg tablet 10 mg PO DAILY #30 tabs 02/10/25 02/12/25 dexamethasone 1 mg tablet 1 mg PO ONCE #1 tab 02/12/25 02/12/25 Previous Rx's ?Medication ?Instructions ?Recorded catheter 12 Fr (Bard Coude Tip #250 ea 07/28/17 Catheter) sildenafil 100 mg tablet (Viagra) 100 mg PO DAILY PRN sexual 09/01/21 activity #50 tab-caps hyoscyamine sulfate 0.375 mg 0.375 mg PO BID #180 tab-caps 08/09/24 tablet,extended release,12 hr imipramine HCl 25 mg tablet 50 mg (2 x 25 mg) PO BID #360 08/09/24 tab-caps oxybutynin chloride 5 mg tablet 10 mg (2 x 5 mg) PO BID #360 08/09/24 tab-caps ergocalciferol (vitamin D2) 1,250 50,000 unit PO QWEEK #13 caps 10/09/24 mcg (50,000 unit) capsule amlodipine 5 mg tablet 5 mg PO DAILY #90 tabs 10/11/24 baclofen 20 mg tablet 60 mg (3 x 20 mg) PO BID #540 10/20/24 tab-caps ciprofloxacin HCl 500 mg tablet 500 mg PO BID #14 tabs 01/18/25 sulfamethoxazole 800 1 tab PO BID #28 tabs 01/18/25 mg-trimethoprim 160 mg tablet (Bactrim DS) levothyroxine 75 mcg tablet 75 mcg PO DAILY #90 tabs 01/21/25 donepezil 10 mg tablet 10 mg PO DAILY #30 tabs 02/10/25 dexamethasone 1 mg tablet 1 mg PO ONCE #1 tab 02/12/25 Allergies Allergy/AdvReac Type Severity Reaction Status Date / Time No Known Allergies Allergy Verified 02/12/25 13:47 General Stated Complaint: Diabetes SNEHA: 3 Exam Narrative Exam Narrative: Gen: Awake and alert, in no apparent distress HEENT: Non-icteric sclera Neck: Supple Lungs: No apparent respiratory distress, normal respiratory effort. Lung sounds clear and equal without wheezes, rhonchi, rales CV: Appears well perfused, heart with regular rate and rhythm, strong distal pulses, systolic murmur auscultated and reported as baseline per patient Abdomen: Non-distended, soft, nontender MSK: Moves 4 extremities without apparent limitation in ROM Skin: Visualized skin without rashes, cyanosis. Baseline vitiligo Neuro: Baseline lower extremity paralysis and sensory loss, no changes compared to patient's normal Psych: Appropriate for situation. Course Vital Signs Vital signs: Vital Signs Temperature 36.8 C 02/12/25 13:44 Pulse 103 H 02/12/25 13:44 Respiratory Rate 20 02/12/25 13:44 Blood Pressure 153/89 H 02/12/25 13:44 Pulse Oximetry 98 02/12/25 13:44 Temperature 36.8 C 02/12/25 13:44 Temperature Source Tympanic 02/12/25 13:44 Pulse 103 H 02/12/25 13:44 Respiratory Rate 20 02/12/25 13:44 Blood Pressure 153/89 H 02/12/25 13:44 Blood Pressure Position Sitting 02/12/25 13:44 Pulse Oximetry 98 02/12/25 13:44 Oxygen Delivery Method Room Air 02/12/25 13:44 Oxygen Flow Rate 0 02/12/25 13:44 Pain Level 0 02/12/25 13:44 Lab/Test Results Lab/Test Results: Laboratory Tests Range/Units 02/12/25 13:50 WBC (4.4-10.8) 10^3/uL 8.93 RBC (4.36-5.78) 10^6/uL 4.80 Hgb (13.5-17.5) g/dL 14.1 Hct (40.0-50.0) % 39.7 L MCV (80-95) fL 83 MCH (27.0-33.0) pg 29.4 MCHC (32.0-36.0) % 35.5 RDW (11.8-14.1) % 12.7 Plt Count (130-400) 10^3/uL 220 MPV (8.0-11.0) fL 10.0 Immature Gran % % 0.3 Neutrophils % % 70.5 Lymphocytes % % 20.0 Monocytes % % 9.1 Eosinophils % % 0.0 Basophils % % 0.1 Nucleated RBC % (0.0-0.3) % 0.0 Absolute Neutrophils (1.2-6.7) 10^3/uL 6.29 Absolute Lymphocytes (1.2-3.4) 10^3/uL 1.79 Absolute Monocytes (0.1-0.8) 10^3/uL 0.81 H Absolute Eosinophils (0.0-0.7) 10^3/uL 0.00 Absolute Basophils (0.0-0.2) 10^3/uL 0.01 VBG pH (7.31-7.41) 7.25 L VBG pCO2 (41-51) mmHg 30 L VBG pO2 mmHg 69 VBG HCO3 (23-28) mmol/L 13 L VBG Total CO2 (24-29) mmol/L 12 L VBG O2 Saturation % 94 VBG Base Excess (-2-3) mmol/L -15 L VBG Lactate (<or=2.0) mmol/L 1.3 Medical Decision Making This is a 49-year-old male patient presenting for evaluation of polyuria and polydipsia with outpatient labs concerning for DKA. Differential includes but is not limited to diabetic ketoacidosis, considered HHS, dehydration, metabolic derangement, anemia, kidney injury. Considered infection as the source, including urinary tract infection and pneumonia. Given the patient's multitude of autoimmune diseases I am quite concerned for type 1 diabetes. We will provide him with a liter of IV fluids for rehydration, and obtain labs to include CBC, CMP, magnesium, lactate, VBG, and urinalysis. I will obtain a chest x-ray. -I reviewed the patient's laboratory studies, which shows no leukocytosis, anemia or thrombocytopenia. Chemistry panel is notable for a an elevated glucose above 600 with associated anion gap elevation to 21 and a decreased bicarb compared to priors. VBG demonstrates acidosis to 7.25 with a compensatory decrease in his pCO2 to 30. No significant changes in liver enzymes, troponin was negative. Urinalysis with ketones and glucosuria but no evidence for infection. Chest x-ray reveals no pneumonias or other acute abnormalities to explain the onset of DKA. I initiated our DKA protocol with potassium containing maintenance fluids, insulin drip per protocol, and ordered a repeat BMP. I did discuss this patient's case with the hospitalist and she is graciously accepted this patient for admission for further management of his DKA. He was transferred from our department to the ICU without incident and remained hemodynamically appropriate while under my care. Valarie Kaur MD Critical Care Time Critical Care Time Critical Care Time: Yes Total Critical Care Time: 45 Attestation: Upon my evaluation, this patient had a high probability of imminent or life-threatening deterioration due to diabetic ketoacidosis, which required my direct attention, intervention, and personal management. I have personally provided 45 minutes of critical care time exclusive of time spent on separately billable procedures. Time includes review of laboratory data, radiology results, discussion with consultants, and monitoring for potential decompensation. Interventions were performed as documented above. Valarie Kaur MD PFSH All Active Problems (Updated 02/12/25 @ 17:12 by Valarie Kaur MD) DKA (diabetic ketoacidosis) (Acute) Elevated glucose level (Acute) Autoimmune autonomic neuropathy (Acute) [place] disease (Acute) Weight disorder (Acute) Paraplegia (Acute) Chest pain (Acute) Thyroid nodule (Acute) Corazon thyroiditis (Acute) Encounter for screening colonoscopy (Acute) Sleep apnea (Acute) Nasal airway abnormality (Acute) Hypothyroid (Chronic) Memory deficit (Acute) Auditory processing disorder (Acute) Rotator cuff tear, right (Acute) Left rotator cuff tear (Acute) Weight gain (Acute) Shoulder pain (Acute) UTI (urinary tract infection) (Acute) Burn of leg, left (Acute) Newly recognized murmur (Acute) Tachycardia (Acute) Stress due to family tension (Acute) Paraplegia following spinal cord injury (Acute) Thoracic spinal cord injury (Acute) parapalegic Bladder spasm (Acute) secondary to spinal cord injury Carpal tunnel syndrome, bilateral (Acute) Tendinitis of long head of biceps brachii of both shoulders (Acute) Toe gangrene (Acute) Vitamin D deficiency (Acute) Fatigue (Acute) Unspecified sensorineural hearing loss (Acute) Asymmetrical sensorineural hearing loss (Chronic) Essential hypertension (Acute) Spinal cord injury (Chronic) Annual physical exam (Acute 06/11/15) Chronic left shoulder pain (Chronic 12/17/15) MRSA (methicillin resistant Staphylococcus aureus) (Chronic 04/26/14) Recurrent urinary tract infection (Chronic) Retention of urine (Chronic) Sensorineural hearing loss, bilateral (Chronic 08/22/15) Tinnitus of both ears (Chronic 08/22/15) Vitiligo (Chronic 07/28/17) Family History Mother No problems noted. Father Diabetes Sister No problems noted. Social History Smoking/Tobacco Use Status: Former Tobacco Use Tobacco: How many years used: 20 Smokeless tobacco user: chewing tobacco and snuff Quit status: considering quitting Second Hand Exposure: Yes Smoking risk assessment performed?: Yes Alcohol Intake: current Alcohol Intake frequency: a few times a week Alcohol type: beer Details: 6 or more drinks monthly or less Drug use: Occasionally Substance use type: marijuana Details: stopped smoking marijuana 20 years ago Adopted: No Caregiver/Support person: No Household members: spouse Housing: house Communication Needs: Corrective Lenses Do you need help understanding health information?: Never Pets and animals: Yes Pets and animals: cat(s) and dog(s) Sexually active: Yes Do you think of yourself as: straight/heterosexual Current gender identity: male What is your relationship status?: How often do you talk on the phone with friends or family?: once per week How often do you get together with friends or relatives?: decline to answer How often do you attend christian or judaism services?: 4 or more times per year Do you belong to any clubs or organized social groups?: no Panel score (0-1 are the most socially isolated patients): 2 Frequency: 1-2 times per week [place]/Yazidi: [facility]aritan Special [place] needs: No Seatbelt use: always Helmet use: Yes Helmet use: always Drive intox or ride w/intox jitney driver: No
[2025-02-12 14:33] LABS: Glucose 500 mg/dL (Negative)
[2025-02-12 14:38] LABS: C & S Indicated? No; WBC Negative HPF (0-5)
[2025-02-12 14:41] LABS: ALT 39 U/L (16-63); AST 23 U/L (15-37); Albumin 3.5 g/dL (3.4-5.0); Alkaline Phosphatase 219 U/L (46-116); Anion Gap 21.2 mmol/L (3-11); BUN 13 mg/dL (7-18); Bilirubin, Total 0.7 mg/dL (0.2-1.0); CO2 16.8 mmol/L (21.0-32.0); Calcium 9.2 mg/dL (8.5-10.1); Chloride 95 mmol/L (98-107); Estimated GFR 61.61 (mL/min/1.73m2); Magnesium 1.9 mg/dL (1.8-2.4); Potassium 4.2 mmol/L (3.5-5.1); Sodium 133 mmol/L (136-145); Total Protein 7.5 g/dL (6.4-8.2); Troponin I 45 ng/L (<or=76)
[2025-02-12 14:42] LABS: Glucose 628 mg/dL (74-106)
[2025-02-12 15:47] LABS: Troponin I 56 ng/L (<or=76)
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
[2025-02-12] MEDS: INSULIN REGULAR IN 0.9 % NACL 100 UNIT/100 ML BAG IVINF (15:57)
[2025-02-12] MEDS: DEXTROSE 5%-0.45% SALINE 1,000 ML 150 ML IV (16:03)
--- NOTE | 2025-02-12 16:17 | W.PC.ACHO ---
Registration Status: REG ER Primary Language: Preferred Language: Yi ED Information & Data Chief Complaint Diabetes 02/12/25 15:19 Chief Complaint Diabetes 02/12/25 14:29 Triage Note Has felt weak/sluggish and 02/12/25 13:44 increased thirst x 2 weeks. Outpatient labs drawn by PCP showed BGL >400. Not a known diabetic Most Recent Vital Signs Temperature 36.8 C 02/12/25 13:44 Temperature Source Tympanic 02/12/25 13:44 Pulse 103 H 02/12/25 13:44 Respiratory Rate 20 02/12/25 13:44 Blood Pressure 153/89 H 02/12/25 13:44 Blood Pressure Position Sitting 02/12/25 13:44 Pulse Oximetry 98 02/12/25 13:44 Oxygen Delivery Method Room Air 02/12/25 13:44 Oxygen Flow Rate 0 02/12/25 13:44 Pain Level 0 02/12/25 13:44 Allergies No Known Allergies Allergy (Verified 02/12/25 13:47) Active Medications Generic Name Dose Route Start Last Admin Trade Name Nyasia PRN Reason Stop Dose Admin Dextrose/Sodium Chloride 1,000 mls @ 150 mls/hr 02/12/25 15:00 02/12/25 16:03 Dextrose 5%-0.45% Ns IV 150 mls/hr INFUSION NEFTALI Administration Insulin Human Regular 100 unit in 100 mls @ 2 mls/hr 02/12/25 15:00 02/12/25 15:57 Myxredlin IVINF 2 unit/hr INFUSION NEFTALI 2 mls/hr Protocol Administration 2 UNIT/HR IV IV Catheter Type [Left Saline Lock Antecubital] IV Catheter Type [Right Peripheral IV Forearm] IV Catheter Gauge [Left 18 Antecubital] IV Catheter Gauge [Right 18 Forearm] Diet Orders Category Date Time Status Diabetes Consistent CHO/Heart Healthy [DIET] Nutrition 02/12/25 Dinner Active Diagnostics 02/12/25 02/12/25 02/12/25 Range/Units 20:00 16:48 16:00 WBC (4.4-10.8) 10^3/uL RBC (4.36-5.78) 10^6/uL Hgb (13.5-17.5) g/dL Hct (40.0-50.0) % MCV (80-95) fL MCH (27.0-33.0) pg MCHC (32.0-36.0) % RDW (11.8-14.1) % Plt Count (130-400) 10^3/uL MPV (8.0-11.0) fL Immature Gran % % Neutrophils % % Lymphocytes % % Monocytes % % Eosinophils % % Basophils % % Nucleated RBC % (0.0-0.3) % Absolute Neutrophils (1.2-6.7) 10^3/uL Absolute Lymphocytes (1.2-3.4) 10^3/uL Absolute Monocytes (0.1-0.8) 10^3/uL Absolute Eosinophils (0.0-0.7) 10^3/uL Absolute Basophils (0.0-0.2) 10^3/uL VBG pH (7.31-7.41) VBG pCO2 (41-51) mmHg VBG pO2 mmHg VBG HCO3 (23-28) mmol/L VBG Total CO2 (24-29) mmol/L VBG O2 Saturation % VBG Base Excess (-2-3) mmol/L VBG Lactate (<or=2.0) mmol/L Sodium Pending Pending (136-145) mmol/L Potassium Pending Pending (3.5-5.1) mmol/L Chloride Pending Pending (98-107) mmol/L Carbon Dioxide Pending Pending (21.0-32.0) mmol/L Anion Gap Pending Pending (3-11) mmol/L BUN Pending Pending (7-18) mg/dL Creatinine Pending Pending (0.70-1.30) mg/dL Est GFR (CKD-EPI 2020) Pending Pending (mL/min/1.73m2) Glucose Pending Pending (74-106) mg/dL Hemoglobin A1c Calcium Pending Pending (8.5-10.1) mg/dL Magnesium (1.8-2.4) mg/dL Total Bilirubin (0.2-1.0) mg/dL AST (15-37) U/L ALT (16-63) U/L Alkaline Phosphatase (46-116) U/L Troponin I Pending (<or=76) ng/L Total Protein (6.4-8.2) g/dL Albumin (3.4-5.0) g/dL Urine Color (Yellow) Urine Clarity (Clear) Urine pH (5-8) Ur Specific [place] (1.005-1.025) Urine Protein (Neg-Trace) mg/dL Urine Ketones (Negative) mg/dL Urine Blood (Negative) Urine Nitrite (Negative) Urine Bilirubin (Negative) Urine Urobilinogen (Up to 0.2) mg/dL Ur Leukocyte Esterase (Negative) Urine RBC (0-2) HPF Urine WBC (0-5) HPF Ur Epithelial Cells (Negative) HPF Urine Crystals (Negative) HPF Urine Bacteria (Negative) HPF Urine Casts (Negative) LPF Urine Mucus (Negative) Ur Culture Indicated? Urine Glucose (Negative) mg/dL 02/12/25 02/12/25 02/12/25 Range/Units 15:51 15:10 14:25 WBC (4.4-10.8) 10^3/uL RBC (4.36-5.78) 10^6/uL Hgb (13.5-17.5) g/dL Hct (40.0-50.0) % MCV (80-95) fL MCH (27.0-33.0) pg MCHC (32.0-36.0) % RDW (11.8-14.1) % Plt Count (130-400) 10^3/uL MPV (8.0-11.0) fL Immature Gran % % Neutrophils % % Lymphocytes % % Monocytes % % Eosinophils % % Basophils % % Nucleated RBC % (0.0-0.3) % Absolute Neutrophils (1.2-6.7) 10^3/uL Absolute Lymphocytes (1.2-3.4) 10^3/uL Absolute Monocytes (0.1-0.8) 10^3/uL Absolute Eosinophils (0.0-0.7) 10^3/uL Absolute Basophils (0.0-0.2) 10^3/uL VBG pH (7.31-7.41) VBG pCO2 (41-51) mmHg VBG pO2 mmHg VBG HCO3 (23-28) mmol/L VBG Total CO2 (24-29) mmol/L VBG O2 Saturation % VBG Base Excess (-2-3) mmol/L VBG Lactate (<or=2.0) mmol/L Sodium Pending (136-145) mmol/L Potassium Pending (3.5-5.1) mmol/L Chloride Pending (98-107) mmol/L Carbon Dioxide Pending (21.0-32.0) mmol/L Anion Gap Pending (3-11) mmol/L BUN Pending (7-18) mg/dL Creatinine Pending (0.70-1.30) mg/dL Est GFR (CKD-EPI 2020) Pending (mL/min/1.73m2) Glucose Pending (74-106) mg/dL Hemoglobin A1c Calcium Pending (8.5-10.1) mg/dL Magnesium (1.8-2.4) mg/dL Total Bilirubin (0.2-1.0) mg/dL AST (15-37) U/L ALT (16-63) U/L Alkaline Phosphatase (46-116) U/L Troponin I 56 (<or=76) ng/L Total Protein (6.4-8.2) g/dL Albumin (3.4-5.0) g/dL Urine Color Yellow (Yellow) Urine Clarity Clear (Clear) Urine pH 5.0 (5-8) Ur Specific [place] 1.020 (1.005-1.025) Urine Protein Negative (Neg-Trace) mg/dL Urine Ketones >=160 H (Negative) mg/dL Urine Blood Trace-intact H (Negative) Urine Nitrite Negative (Negative) Urine Bilirubin Negative (Negative) Urine Urobilinogen 0.2 (Up to 0.2) mg/dL Ur Leukocyte Esterase Negative (Negative) Urine RBC 3-5 H (0-2) HPF Urine WBC Negative (0-5) HPF Ur Epithelial Cells Rare (Negative) HPF Urine Crystals Negative (Negative) HPF Urine Bacteria Rare (Negative) HPF Urine Casts Negative (Negative) LPF Urine Mucus Negative (Negative) Ur Culture Indicated? No Urine Glucose 500 H (Negative) mg/dL 02/12/25 02/12/25 Range/Units 13:59 13:50 WBC 8.93 (4.4-10.8) 10^3/uL RBC 4.80 (4.36-5.78) 10^6/uL Hgb 14.1 (13.5-17.5) g/dL Hct 39.7 L (40.0-50.0) % MCV 83 (80-95) fL MCH 29.4 (27.0-33.0) pg MCHC 35.5 (32.0-36.0) % RDW 12.7 (11.8-14.1) % Plt Count 220 (130-400) 10^3/uL MPV 10.0 (8.0-11.0) fL Immature Gran % 0.3 % Neutrophils % 70.5 % Lymphocytes % 20.0 % Monocytes % 9.1 % Eosinophils % 0.0 % Basophils % 0.1 % Nucleated RBC % 0.0 (0.0-0.3) % Absolute Neutrophils 6.29 (1.2-6.7) 10^3/uL Absolute Lymphocytes 1.79 (1.2-3.4) 10^3/uL Absolute Monocytes 0.81 H (0.1-0.8) 10^3/uL Absolute Eosinophils 0.00 (0.0-0.7) 10^3/uL Absolute Basophils 0.01 (0.0-0.2) 10^3/uL VBG pH 7.25 L (7.31-7.41) VBG pCO2 30 L (41-51) mmHg VBG pO2 69 mmHg VBG HCO3 13 L (23-28) mmol/L VBG Total CO2 12 L (24-29) mmol/L VBG O2 Saturation 94 % VBG Base Excess -15 L (-2-3) mmol/L VBG Lactate 1.3 (<or=2.0) mmol/L Sodium 133 L (136-145) mmol/L Potassium 4.2 (3.5-5.1) mmol/L Chloride 95 L (98-107) mmol/L Carbon Dioxide 16.8 L (21.0-32.0) mmol/L Anion Gap 21.2 H (3-11) mmol/L BUN 13 (7-18) mg/dL Creatinine 1.4 H (0.70-1.30) mg/dL Est GFR (CKD-EPI 2020) 61.61 (mL/min/1.73m2) Glucose 628 H* (74-106) mg/dL Hemoglobin A1c Pending Calcium 9.2 (8.5-10.1) mg/dL Magnesium 1.9 (1.8-2.4) mg/dL Total Bilirubin 0.7 (0.2-1.0) mg/dL AST 23 (15-37) U/L ALT 39 (16-63) U/L Alkaline Phosphatase 219 H (46-116) U/L Troponin I 45 (<or=76) ng/L Total Protein 7.5 (6.4-8.2) g/dL Albumin 3.5 (3.4-5.0) g/dL Urine Color (Yellow) Urine Clarity (Clear) Urine pH (5-8) Ur Specific [place] (1.005-1.025) Urine Protein (Neg-Trace) mg/dL Urine Ketones (Negative) mg/dL Urine Blood (Negative) Urine Nitrite (Negative) Urine Bilirubin (Negative) Urine Urobilinogen (Up to 0.2) mg/dL Ur Leukocyte Esterase (Negative) Urine RBC (0-2) HPF Urine WBC (0-5) HPF Ur Epithelial Cells (Negative) HPF Urine Crystals (Negative) HPF Urine Bacteria (Negative) HPF Urine Casts (Negative) LPF Urine Mucus (Negative) Ur Culture Indicated? Urine Glucose (Negative) mg/dL [id number] Documentation Fingerstick Glucose Start: 02/12/25 16:08 Freq: Status: Active Protocol: Activity Type Activity Date Activity User E-sign Co-sign Detail Recorded Client Recorded Date Recorded By Document 02/12/25 16:03 BKG DAEMON(9) [id number] 02/12/25 16:08 BKG DAEMON(10) Intake and Output - 24 Hour Total 02/12/25 13:40 thru 02/12/25 13:54 Intake Total 10 Balance 10 Weight 83.915 kg Intake: IV 10 Falls Risk Assessment History of Falls No History 02/12/25 15:23 Contributing Factors No Factors 02/12/25 15:23 Ambulatory Aids Uses ambulatory device + 02/12/25 15:23 Tubes/Lines None 02/12/25 15:23 Gait Evaluation No gait disturbance 02/12/25 15:23 Cognition No cognitive impairment 02/12/25 15:23 Fall Total Score 30 02/12/25 15:23 Level of Risk Moderate Risk 02/12/25 15:23 v v v v v v v v v Sending and/or Receiving Nurses: Please use comment section below to note any information pertinent to the patient hand-off not included above. Information / Comments: Report received from: Yelena ceballos
[2025-02-12] MEDS: POTASSIUM CHLORIDE/0.9% NACL 1,000 ML 150 MEQ IV ×2 (16:22→22:20)
[2025-02-12 17:20] LABS: Anion Gap 19.9 mmol/L (3-11); BUN 15 mg/dL (7-18); CO2 17.1 mmol/L (21.0-32.0); Calcium 9.0 mg/dL (8.5-10.1); Chloride 97 mmol/L (98-107); Estimated GFR 61.61 (mL/min/1.73m2); Potassium 4.1 mmol/L (3.5-5.1); Sodium 134 mmol/L (136-145)
[2025-02-12 17:21] LABS: Glucose 603 mg/dL (74-106)
[2025-02-12 17:22] LABS: Troponin I 62 ng/L (<or=76)
[2025-02-12 17:49] LABS: Hemoglobin A1C 11.4 % (<5.7)
[2025-02-12 19:03] LABS: Anion Gap 20.0 mmol/L (3-11); BUN 14 mg/dL (7-18); CO2 17.0 mmol/L (21.0-32.0); Calcium 8.9 mg/dL (8.5-10.1); Chloride 98 mmol/L (98-107); Estimated GFR 61.61 (mL/min/1.73m2); Potassium 4.2 mmol/L (3.5-5.1); Sodium 135 mmol/L (136-145)
[2025-02-12 19:05] LABS: Glucose 603 mg/dL (74-106)
[2025-02-12 20:28] LABS: Anion Gap 19.4 mmol/L (3-11); BUN 15 mg/dL (7-18); CO2 16.6 mmol/L (21.0-32.0); Calcium 9.1 mg/dL (8.5-10.1); Chloride 100 mmol/L (98-107); Estimated GFR 74.13 (mL/min/1.73m2); Glucose 465 mg/dL (74-106); Potassium 3.7 mmol/L (3.5-5.1); Sodium 136 mmol/L (136-145)
[2025-02-12] MEDS: Baclofen 10 MG TAB 60 MG PO (20:56)
[2025-02-12] MEDS: Acetaminophen 325 MG TAB 650 MG PO (20:57)
[2025-02-12] MEDS: Normal Saline Flush 10 ML SYR IVP (20:57)
[2025-02-12] MEDS: Oxybutynin 5 MG TAB 10 MG PO (20:57)
[2025-02-12] MEDS: Patient's Own Medication 1 EACH MISC 75 EACH PO (21:40)
[2025-02-12 22:42] LABS: Anion Gap 10.8 mmol/L (3-11); BUN 13 mg/dL (7-18); CO2 21.2 mmol/L (21.0-32.0); Calcium 8.8 mg/dL (8.5-10.1); Chloride 105 mmol/L (98-107); Estimated GFR 92.26 (mL/min/1.73m2); Glucose 296 mg/dL (74-106); Potassium 3.4 mmol/L (3.5-5.1); Sodium 137 mmol/L (136-145)
[2025-02-13] VITALS (67 sets, daily range): BP systolic 94–132; BP diastolic 57–91; PULSE 56–103; RESP 7–39; TEMP 36.9–37.7; O2SAT 96–100
[2025-02-13 00:39] LABS: Anion Gap 10.8 mmol/L (3-11); BUN 13 mg/dL (7-18); CO2 22.2 mmol/L (21.0-32.0); Calcium 8.9 mg/dL (8.5-10.1); Chloride 106 mmol/L (98-107); Estimated GFR 104.70 (mL/min/1.73m2); Glucose 200 mg/dL (74-106); Potassium 3.2 mmol/L (3.5-5.1); Sodium 139 mmol/L (136-145)
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
[2025-02-13] MEDS: POTASSIUM CHLORIDE/D5-0.45NACL 1,000 ML 150 MEQ IV ×2 (01:01→07:51)
[2025-02-13 02:46] LABS: Anion Gap 10.5 mmol/L (3-11); BUN 11 mg/dL (7-18); CO2 21.5 mmol/L (21.0-32.0); Calcium 8.7 mg/dL (8.5-10.1); Chloride 107 mmol/L (98-107); Estimated GFR 92.26 (mL/min/1.73m2); Glucose 192 mg/dL (74-106); Potassium 3.2 mmol/L (3.5-5.1); Sodium 139 mmol/L (136-145)
[2025-02-13 04:30] LABS: Anion Gap 9.0 mmol/L (3-11); BUN 11 mg/dL (7-18); CO2 23.0 mmol/L (21.0-32.0); Calcium 8.4 mg/dL (8.5-10.1); Chloride 107 mmol/L (98-107); Estimated GFR 108.49 (mL/min/1.73m2); Glucose 184 mg/dL (74-106); Potassium 3.2 mmol/L (3.5-5.1); Sodium 139 mmol/L (136-145)
[2025-02-13] MEDS: Levothyroxine 75 MCG TAB PO (06:08)
[2025-02-13 06:47] LABS: HCT 34.3 % (40.0-50.0); HGB 12.5 g/dL (13.5-17.5); MCH 29.8 pg (27.0-33.0); MCHC 36.4 % (32.0-36.0); MCV 82 fL (80-95); MPV 9.5 fL (8.0-11.0); Platelet Count 174 10^3/uL (130-400); RBC 4.20 10^6/uL (4.36-5.78); RDW 12.9 % (11.8-14.1); RDW-SD 37.9 fL; WBC 6.78 10^3/uL (4.4-10.8)
[2025-02-13 07:07] LABS: Magnesium 1.7 mg/dL (1.8-2.4)
[2025-02-13 07:08] LABS: ALT 24 U/L (16-63); AST 14 U/L (15-37); Albumin 2.7 g/dL (3.4-5.0); Alkaline Phosphatase 133 U/L (46-116); Anion Gap 6.2 mmol/L (3-11); BUN 13 mg/dL (7-18); Bilirubin, Total 0.3 mg/dL (0.2-1.0); CO2 26.8 mmol/L (21.0-32.0); Calcium 8.4 mg/dL (8.5-10.1); Calculated LDL 101 mg/dL (<100); Chloride 106 mmol/L (98-107); Cholesterol 157 mg/dL (<200); Estimated GFR 112.95 (mL/min/1.73m2); Glucose 172 mg/dL (74-106); HDL Cholesterol 40 mg/dL (>or=40); Potassium 3.3 mmol/L (3.5-5.1); Sodium 139 mmol/L (136-145); Total Protein 5.8 g/dL (6.4-8.2); Triglyceride 84 mg/dL (<150)
[2025-02-13] MEDS: Oxybutynin 5 MG TAB 10 MG PO ×2 (08:09→20:43)
[2025-02-13] MEDS: Enoxaparin 40 MG/0.4 ML SYR SC (08:09)
[2025-02-13] MEDS: amLODIPine 5 MG TAB PO (08:09)
[2025-02-13] MEDS: Baclofen 10 MG TAB 60 MG PO ×2 (08:09→20:42)
[2025-02-13] MEDS: Donepezil 5 MG TAB 10 MG PO (08:09)
[2025-02-13] MEDS: Hyoscyamine 0.125 MG SL/ORAL/CHEW 0.375 MG PO (09:08)
[2025-02-13] MEDS: Insulin Glargine 300 UNITS/3 ML PEN 20 UNITS SC (09:28)
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
[2025-02-13] MEDS: MAGNESIUM SULFATE 2 GM/50 ML BAG IV_INF (09:57)
[2025-02-13] MEDS: Lactated Ringers 1,000 ML 125 ML IV ×2 (10:33→18:33)
[2025-02-13] MEDS: Insulin Aspart 300 UNITS/3 ML PEN SC ×4 (11:44→23:05)
--- NOTE | 2025-02-13 12:17 | DM INPTCON_ITS ---
Date of service: 02/13/25 Time of Service: 12:17 Diabetes Inpatient Consult Reason for Visit: diabetes education/mgt consult DESCRIPTION/ASSESSMENT: Jaord admitted with DKA - probably new Dx of DMI withy c-peptide pending. Hx of Addisons, Hashimotos Vitiligo seem congruent with Type I Dx as well. Hx of paraplegia with current wounds to bilat heel area with low total protein and albumin labs indicating possible protein deficit. Current A1c at 11.4%. Was given 20 unites insulin Glargine before taken off inulin drip earlier today and ordered for mealtime corrections on sensitive scale. Lytes being repleted. Estimated energy needs: 2305kcals ([id number]), 114-152g protein (1.5- 2.0g/kg) for wound healing and 2305mL fluid (1mL per requied kcal). Visited with Jarod - did not want to overwhelm him with this new concern over glucose mgt but he has done some self-research already and knows there will need to be some education, changes and insulin adminstration to help bring glucose to target. INTERVENTION: Will affix Dexcom G& CGM on Jarod prior to discharge with education on how to use and will make outpatient appt for 10 days when it times out. Recommend insulin managment with TDD at 30 units - 15 units basal insulin Q AM along with mealtime bolus for correction and carb coverage - suggest sensitive sliding scale aspart along with 1u:15g ratio for carb coverage (education will continue in this area for accurate estimation). Recommend vitamin D level as deficiency in the past and it's role in immunity. Does take D2 at home but doesn't recall repeat lab from after it was first found low in 2020. will provide expedite protein/wound supplement TID for an additional 30g per day of protein. Could also consider liquid protein concerntrate ordered TID for nursing to administer for an additional 45g of protein per day. PLAN: Will monitor glucose and nutrition related labs and continue to follow patient daily until discharge where I will offer continued outpatient education. Time Spent in Nutritional Counseling and Treatment: 15 min
[2025-02-13 12:50] LABS: Anion Gap 9.9 mmol/L (3-11); BUN 9 mg/dL (7-18); CO2 23.1 mmol/L (21.0-32.0); Calcium 8.4 mg/dL (8.5-10.1); Chloride 105 mmol/L (98-107); Estimated GFR 112.95 (mL/min/1.73m2); Glucose 167 mg/dL (74-106); Potassium 3.6 mmol/L (3.5-5.1); Sodium 138 mmol/L (136-145)
--- NOTE | 2025-02-13 12:50 | PHACLINREV_ITS ---
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 (Acute) Essential hypertension (Acute) Paraplegia following spinal cord injury (Acute) No Known Allergies Allergy (Verified 02/12/25 13:47) Resuscitation Status Full Code Height 5 ft 8 in Weight 76.2 kg Pharmacy Admission Review Renal Dosing Renal Dosing: BUN 13 mg/dL (7-18) 02/13/25 06:10 Creatinine 0.7 mg/dL (0.70-1.30) 02/13/25 06:10 Medications needing adjustments: Reviewed (CrCl 137 mL/min) List of meds needing interventions: Current medications are okay Anticoagulation Anticoagulation: Hgb 12.5 g/dL (13.5-17.5) L 02/13/25 06:10 Hct 34.3 % (40.0-50.0) L 02/13/25 06:10 Plt Count 174 10^3/uL (130-400) 02/13/25 06:10 Creatinine 0.7 mg/dL (0.70-1.30) 02/13/25 06:10 DVT Prophylaxis: Reviewed (Hgb decreased from 14.1) Medications: Enoxaparin (40mg daily) Relevant Labs Relevant Labs: Sodium 139 mmol/L (136-145) 02/13/25 06:10 Potassium 3.3 mmol/L (3.5-5.1) L 02/13/25 06:10 Chloride 106 mmol/L (98-107) 02/13/25 06:10 Phosphorus < 2.0 mg/dL (2.6-4.7) L 02/13/25 06:10 Magnesium 1.7 mg/dL (1.8-2.4) L 02/13/25 06:10 Electrolytes, C-Reactive P, ESR: Reviewed (received IV 2gm magnesium this AM and ordered added for phosphorus 250mg tablet QID) DM Control DM Control: Glucose 172 mg/dL (74-106) H 02/13/25 06:10 Hemoglobin A1c 11.4 % (<5.7) H 02/12/25 13:59 Finger Stick Blood Glucose 143 1144 Finger Stick Blood Glucose 143 1142 Finger Stick Blood Glucose 143 1142 Finger Stick Blood Glucose 98 0930 Finger Stick Blood Glucose 98 0930 Finger Stick Blood Glucose 122 0806 Finger Stick Blood Glucose 122 0806 Finger Stick Blood Glucose 153 0711 Finger Stick Blood Glucose 153 0711 Finger Stick Blood Glucose 175 0611 Finger Stick Blood Glucose 175 0611 Finger Stick Blood Glucose 156 0517 Finger Stick Blood Glucose 156 0517 DM Control: Reviewed (newly diagnosed) Insulin Dosing, Diabetic Medication: Patient was on insulin drip for DKA which was discontinued this morning. Order was put in for SS insulin and received a now one dose of glargine 20 units this morning. Cardiac Review Cardiac Review: Troponin I 62 ng/L (<or=76) 02/12/25 16:50 Blood Pressure 99/64 1107 Blood Pressure 98/66 1001 Blood Pressure 104/69 0900 Blood Pressure 106/69 0801 Blood Pressure 121/71 0755 Blood Pressure 105/75 0700 Blood Pressure 104/71 0601 Blood Pressure 108/76 0500 Blood Pressure 96/74 0401 Blood Pressure 114/78 0300 Blood Pressure 118/62 0201 Blood Pressure 96/60 0100 BP, HR, EF%: Reviewed (HR WNL) List meds needing interventions: Has order for amlodipine 5mg daily QTc Review QTc: Reviewed (427 02/12/25) IV to PO Switch IV Medications: Reviewed Home Meds Home Med List reviewed: Intervened Relevent Home Meds Not ordered & why?: sildenafil (PRN) Verified patients own Gemtesa and sent up to floor Called nurse to verify that patient does take hyoscyamine at home - last filled 08/29 for 30 day supply and bottle that was brought in states 2 tablets by mouth twice daily. Per nurse patient stated they are taking it and they take 1 tablet twice daily. Spoke to provider as order was put in as the ODT 0.125mg tablet but home med list states that patient takes an extended release tablet. Changed to patients own and verified medication/labeled and sent up to floor. Current Meds Current Medication Order Review: Intervened Comments: Changed IV ED access order
--- NOTE | 2025-02-13 17:00 | RT.EKG_ITS ---
APPROVED REPORT Exam: Resting ECG Reason for Exam: chest pain Patient Location: I HR:90 bpm ECG Measurements Heart Rate 90 AXIS ME 141 P 55 QRSd 79 QRS 12 QT 370 T 7 QTc 453 Conclusion Sinus rhythm...normal P axis, V-rate 50- 99 Probable left atrial enlargement...P >50mS, <-0.10mV V1 Anterior infarct, old...Q >40mS, abnormal ST-T, V2-V5
--- NOTE | 2025-02-13 17:22 | W.PM.PROGNOT ---
Date of Service Date of service: 02/13/25 Time of Service: 11:00 Assessment and Plan Assessment and plan (1) DKA (diabetic ketoacidosis): Status: Acute Assessment and plan: Patient newly diagnosed with DM, not on any medications yet Acidosis with ketonuria on arrival Admitted to ICU for DKA protocol with insulin drip, potassium correction, IV fluids, BMP q4h. NPO Downgraded to the floor with improvement. 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: Status: Acute Assessment and plan: Chronic Dexamethasone challenge planned for this week (5) Corazon thyroiditis: Status: Acute Assessment and plan: Recent diagnosis, continue levothyroxine (6) Paraplegia following spinal cord injury: Status: Acute Assessment and plan: Patient may straight cath (7) Essential hypertension: Status: Acute Assessment and plan: Continue home regimen (8) Vitiligo: Status: Chronic Assessment and plan: Additional evidence of autoimmunity Exam Narrative Exam Narrative: General: This is a very pleasant, thin man, wheelchair-bound, in no acute distress HEENT: Normocephalic, atraumatic. Dry mucous membranes. CV: Mild tachycardia. Systolic murmur as noted previously. Resp: CTAB Abd: Soft, NTND, +NBS MSK: BUE voluntary motion, paraplegic Neuro: Awake, alert, no focal deficits Objective Last Vital Signs Temp 37.6 C H 02/13/25 12:09 Pulse 87 02/13/25 14:17 Resp 13 02/13/25 14:17 BP 119/73 02/13/25 14:17 Pulse Ox 96 02/13/25 14:17 Laboratory Results - last 24 hr 02/12/25 02/12/25 02/12/25 13:59 16:50 18:38 WBC RBC Hgb Hct MCV MCH MCHC RDW Plt Count MPV Sodium 135 L Potassium 4.2 Chloride 98 Carbon Dioxide 17.0 L Anion Gap 20.0 H BUN 14 Creatinine 1.4 H Est GFR (CKD-EPI 2020) 61.61 Glucose 603 H* Hemoglobin A1c 11.4 H Calcium 8.9 Phosphorus Magnesium Total Bilirubin AST ALT Alkaline Phosphatase Troponin I 62 Total Protein Albumin Triglycerides Total Cholesterol LDL Cholesterol, Calc HDL Cholesterol 02/12/25 02/12/25 02/13/25 20:05 22:20 00:10 WBC RBC Hgb Hct MCV MCH MCHC RDW Plt Count MPV Sodium 136 137 139 Potassium 3.7 3.4 L 3.2 L Chloride 100 105 106 Carbon Dioxide 16.6 L 21.2 22.2 Anion Gap 19.4 H 10.8 10.8 BUN 15 13 13 Creatinine 1.2 1.0 0.9 Est GFR (CKD-EPI 2020) 74.13 92.26 104.70 Glucose 465 H 296 H 200 H Hemoglobin A1c Calcium 9.1 8.8 8.9 Phosphorus Magnesium Total Bilirubin AST ALT Alkaline Phosphatase Troponin I Total Protein Albumin Triglycerides Total Cholesterol LDL Cholesterol, Calc HDL Cholesterol 02/13/25 02/13/25 02/13/25 02:05 04:05 04:13 WBC RBC Hgb Hct MCV MCH MCHC RDW Plt Count MPV Sodium 139 139 Cancelled Potassium 3.2 L 3.2 L Cancelled Chloride 107 107 Cancelled Carbon Dioxide 21.5 23.0 Cancelled Anion Gap 10.5 9.0 Cancelled BUN 11 11 Cancelled Creatinine 1.0 0.8 Cancelled Est GFR (CKD-EPI 2020) 92.26 108.49 Cancelled Glucose 192 H 184 H Cancelled Hemoglobin A1c Calcium 8.7 8.4 L Cancelled Phosphorus Magnesium Total Bilirubin AST ALT Alkaline Phosphatase Troponin I Total Protein Albumin Triglycerides Total Cholesterol LDL Cholesterol, Calc HDL Cholesterol 02/13/25 02/13/25 06:10 12:06 WBC 6.78 RBC 4.20 L Hgb 12.5 L Hct 34.3 L MCV 82 MCH 29.8 MCHC 36.4 H RDW 12.9 Plt Count 174 MPV 9.5 Sodium 139 138 Potassium 3.3 L 3.6 Chloride 106 105 Carbon Dioxide 26.8 23.1 Anion Gap 6.2 9.9 BUN 13 9 Creatinine 0.7 0.7 Est GFR (CKD-EPI 2020) 112.95 112.95 Glucose 172 H 167 H Hemoglobin A1c Calcium 8.4 L 8.4 L Phosphorus < 2.0 L Magnesium 1.7 L Total Bilirubin 0.3 AST 14 L ALT 24 Alkaline Phosphatase 133 H Troponin I Total Protein 5.8 L Albumin 2.7 L Triglycerides 84 Total Cholesterol 157 LDL Cholesterol, Calc 101 H HDL Cholesterol 40 PAWSS Have you Been Recently Intoxicated or Drunk Within the Last 30 days?: No Have you Ever Experienced Previous Episodes of Alcohol Withdrawal?: No Have you ever Experienced Withdrawal Seizures?: No Have you ever Experienced Delirium Tremens(DT)s?: No Have you ever undergone Alcohol Rehabilitation Treatment (i.e, inpt ot outpatient treatment programs)?: No Have you ever Experienced Blackouts?: No Have you ever Combined Alcohol with other Downers within the last 90 days?: No Have you ever Combined Alcohol with any other Substance of Abuse during the last 90 days?: No Positive Blood Alcohol level on Presentation? [PCS.BAL]: No Evidence of Increased Autonomic Activity (i.e. HR>120, tremor, sweating, agitation, nausea)?: No Result: 0 Time Spent with Patient Time Spent with Patient: 25-34 minutes Time was spent: preparing to see the patient(eg.review tests), obtaining and/or reviewing separately otained hiistory, ordering medications,tests, procedures, referring, communicating with other health direct care provider, indepentently interpreting results, counseling the patient and care coordination
[2025-02-13 17:49] LABS: Troponin I 105 ng/L (<or=76)
[2025-02-13] MEDS: Normal Saline Flush 10 ML SYR IVP (20:43)
[2025-02-13] MEDS: Patient's Own Medication 1 EACH MISC PO (20:44)
[2025-02-13 23:54] LABS: Troponin I 106 ng/L (<or=76)
[2025-02-14] VITALS (26 sets, daily range): BP systolic 80–128; BP diastolic 59–96; PULSE 54–107; RESP 9–20; TEMP 36.4–36.7; O2SAT 93–100
[2025-02-14] MEDS: Lactated Ringers 1,000 ML 125 ML IV ×2 (02:43→10:47)
[2025-02-14] MEDS: Levothyroxine 75 MCG TAB PO (06:20)
[2025-02-14 06:43] LABS: HCT 33.1 % (40.0-50.0); HGB 11.8 g/dL (13.5-17.5); MCH 29.0 pg (27.0-33.0); MCHC 35.6 % (32.0-36.0); MCV 81 fL (80-95); MPV 10.2 fL (8.0-11.0); Platelet Count 167 10^3/uL (130-400); RBC 4.07 10^6/uL (4.36-5.78); RDW 13.0 % (11.8-14.1); RDW-SD 38.1 fL; WBC 5.31 10^3/uL (4.4-10.8)
[2025-02-14 07:05] LABS: Magnesium 1.7 mg/dL (1.8-2.4)
[2025-02-14 07:10] LABS: ALT 22 U/L (16-63); AST 15 U/L (15-37); Albumin 2.4 g/dL (3.4-5.0); Alkaline Phosphatase 111 U/L (46-116); Anion Gap 5.8 mmol/L (3-11); BUN 12 mg/dL (7-18); Bilirubin, Total 0.3 mg/dL (0.2-1.0); CO2 29.2 mmol/L (21.0-32.0); Calcium 8.3 mg/dL (8.5-10.1); Chloride 107 mmol/L (98-107); Estimated GFR 118.34 (mL/min/1.73m2); Glucose 159 mg/dL (74-106); Sodium 142 mmol/L (136-145); Total Protein 5.3 g/dL (6.4-8.2)
[2025-02-14 07:25] LABS: Potassium 2.8 mmol/L (3.5-5.1)
[2025-02-14] MEDS: Insulin Aspart 300 UNITS/3 ML PEN SC ×4 (08:24→21:45)
[2025-02-14] MEDS: Normal Saline Flush 10 ML SYR IVP ×2 (08:27→20:47)
[2025-02-14] MEDS: Enoxaparin 40 MG/0.4 ML SYR SC (08:27)
[2025-02-14] MEDS: amLODIPine 5 MG TAB PO (08:29)
[2025-02-14] MEDS: Donepezil 5 MG TAB 10 MG PO (08:30)
[2025-02-14] MEDS: Oxybutynin 5 MG TAB 10 MG PO ×2 (08:30→20:40)
--- NOTE | 2025-02-14 08:49 | CMPROGNOTE_ITS ---
Date of service: 02/14/25 Time of Service: 15:08 Care Management Progress Note Progress Note Text Progress Note Text: Jarod was lying in bed when CM met with him today. He was very pleasant and enjoyable to converse with. Jarod stated that he is trying to come to terms with his diabetes diagnosis. He stated that he knows he will need to change some of his habits, and he is fully on board with making those changes and doing whatever he needs to to keep his blood sugars stable. He will be given a Dexcom G7 sensor prior to discharge, along with an extra (CM coordianted this with [employer]), so that his PCP office will have time to coordinate the PA and orde ring of the sensors. His PCP was notified of this and CM was referred to Cayden Negron, pharmacist, who handles ordering the supplies. Message was left for Cayden explaining the circumstances. Plan is for Jarod to be discharged tomorrow. Discharge Potential Discharge Needs: PCP F/U Appt and Other (continued diabetic education) Anticipated Barriers to Discharge: None Identified Patient/Family Education Needs: Review discharge instructions, discuss Ask Me Three Transportation: Private vehicle Plan: Anticipate that Jarod will discharge home once medically stable, with no new services. He will be provided with diabetic education here at [facility], and that will continue as out patient. Jarod will f/u with his PCP and continue per his plan of care. He will transport home in a private vehicle with his . CM will continue to follow. Social Determinants of Health Screening Social Determinants of health last assessed in clinic: 02/14/25 Will the Patient Participate in the Screening?: Yes Do you worry about having a steady place to live?: no Problems where you live: no known problems In the past 12 months, have you had to go without electric, gas, oil or water in your home?: no 1. Within the past 12 months, we worried whether our food would run out before we got money to buy more.: Never true 2. Within the past 12 months, the food we bought just didn't last and we didn't have money to get more.: Never true Has lack of transportation kept you from medical appointments or from doing things needed for daily living?: no Has anyone in your life made you feel unsafe or unsupported?: no How hard is it for you to pay for the very basics like food, housing, medical care, and heating? Would you say it is:: Not hard at all Do you want help finding or keeping work or a job?: I do not need or want help If for any reason you need help with day-to-day activities such as bathing, pr eparing meals, shopping, managing finances, etc., do you get the help you need?: I don?t need any help How often do you feel lonely or isolated from those around you?: Never Do you speak a language other than German at home?: No Does the patient want assistance with any of the above?: No
[2025-02-14] MEDS: Baclofen 10 MG TAB 60 MG PO ×2 (08:52→20:40)
[2025-02-14] MEDS: POTASSIUM CHLORIDE/0.9% NACL 1,000 ML 125 MEQ IV ×3 (14:18→23:05)
[2025-02-14] MEDS: MAGNESIUM SULFATE 2 GM/50 ML BAG IV_INF ×2 (14:19→14:30)
--- NOTE | 2025-02-14 17:21 | W.PC.ACHO ---
Registration Status: ADM IN Primary Language: Preferred Language: Hebrew ED Information & Data Chief Complaint Diabetes 02/12/25 15:19 Chief Complaint Diabetes 02/12/25 14:29 Triage Note Has felt weak/sluggish and 02/12/25 13:44 increased thirst x 2 weeks. Outpatient labs drawn by PCP showed BGL >400. Not a known diabetic Medical / Surgical History (Last Updated 02/12/25 @ 18:35 by Maggi Carey MD, [place]) Weight disorder Vitamin D deficiency MRSA (methicillin resistant Staphylococcus aureus) (04/26/14) Most Recent Vital Signs Temperature 36.4 C L 02/14/25 17:13 Temperature Source Temporal Artery Scan 02/14/25 17:13 Pulse 86 02/14/25 17:13 Pulse 95 H 02/14/25 16:01 Respiratory Rate 16 02/14/25 17:13 Respiratory Effort Normal 02/12/25 16:35 Respiratory Depth Normal 02/12/25 16:35 Respiratory Pattern Normal 02/12/25 16:35 Blood Pressure 115/73 02/14/25 17:13 Blood Pressure Mean 87 02/14/25 17:13 Blood Pressure Position Supine 02/12/25 16:35 Pulse Oximetry 100 02/14/25 17:13 Oxygen Delivery Method Room Air 02/14/25 17:13 Oxygen Flow Rate 0 02/14/25 17:13 Pain Level 0 02/14/25 17:13 Allergies No Known Allergies Allergy (Verified 02/12/25 13:47) Active Medications Generic Name Dose Route Start Last Admin Trade Name Freq PRN Reason Stop Dose Admin Acetaminophen 650 mg 02/12/25 15:47 02/12/25 20:57 Acetaminophen 325 Mg Tab PO 650 mg Q4H PRN PRN Administration Amlodipine Besylate 5 mg 02/13/25 08:30 02/14/25 08:29 Amlodipine 5 Mg Tab PO 5 mg DAILY NEFTALI Administration Baclofen 60 mg 02/12/25 20:00 02/14/25 08:52 Baclofen 10 Mg Tab PO 60 mg BID NEFTALI Administration Donepezil HCl 10 mg 02/13/25 08:30 02/14/25 08:30 Donepezil 5 Mg Tab PO 10 mg DAILY NEFTALI Administration Enoxaparin Sodium 40 mg 02/13/25 08:30 02/14/25 08:27 Enoxaparin 40 Mg/0.4 Ml Syr SC 40 mg DAILY NEFTALI Administration Dextrose/Sodium Chloride 1,000 mls @ 150 mls/hr 02/12/25 15:00 02/14/25 02:47 Dextrose 5%-0.45% Ns IV Infused INFUSION NEFTALI Infusion Potassium Chloride/Sodium Chloride 1,000 mls @ 125 mls/hr 02/14/25 14:15 02/14/25 14:30 Kcl 40 Meq/Ns IV 125 mls/hr INFUSION NEFTALI Administration Imipramine HCl 50 mg 02/12/25 20:00 02/14/25 08:29 Imipramine 25 Mg Tablet PO 50 mg BID NEFTALI Administration Insulin Aspart 0 - 9 units 02/13/25 23:00 02/14/25 16:47 Insulin Aspart 300 Units/3 Ml Pen SC 3 units AC & HS NEFTALI Administration Protocol Levothyroxine Sodium 75 mcg 02/13/25 06:00 02/14/25 06:20 Levothyroxine 75 Mcg Tab PO 75 mcg DAILY@0600 NEFTALI Administration Oxybutynin Chloride 10 mg 02/12/25 20:00 02/14/25 08:30 Oxybutynin 5 Mg Tab PO 10 mg BID NEFTALI Administration Patient Own Medication 1 each 02/13/25 20:00 02/13/25 20:44 Patient's Own Medication 1 Each Misc PO 1 each HS NEFTALI Administration Pt's Own Hyoscyamine 1 each 02/13/25 20:00 02/14/25 08:28 0.375mg Er Tablet PO 1 each BID NEFTALI Administration Sodium Chloride 0 ml 02/12/25 20:00 02/14/25 08:27 Normal Saline Flush 10 Ml Syr IVP 20 ml BID NEFTALI Administration IV IV Catheter Type [Left Peripheral IV Antecubital] IV Catheter Type [Right Saline Lock Forearm] IV Catheter Gauge [Left 18 Antecubital] IV Catheter Gauge [Right 18 Forearm] Diagnostics 02/14/25 02/13/25 02/13/25 Range/Units 05:30 23:20 17:23 WBC 5.31 (4.4-10.8) 10^3/uL RBC 4.07 L (4.36-5.78) 10^6/uL Hgb 11.8 L (13.5-17.5) g/dL Hct 33.1 L (40.0-50.0) % MCV 81 (80-95) fL MCH 29.0 (27.0-33.0) pg MCHC 35.6 (32.0-36.0) % RDW 13.0 (11.8-14.1) % Plt Count 167 (130-400) 10^3/uL MPV 10.2 (8.0-11.0) fL Sodium 142 (136-145) mmol/L Potassium 2.8 L* (3.5-5.1) mmol/L Chloride 107 (98-107) mmol/L Carbon Dioxide 29.2 (21.0-32.0) mmol/L Anion Gap 5.8 (3-11) mmol/L BUN 12 (7-18) mg/dL Creatinine 0.6 L (0.70-1.30) mg/dL Est GFR (CKD-EPI 2020) 118.34 (mL/min/1.73m2) Glucose 159 H (74-106) mg/dL Calcium 8.3 L (8.5-10.1) mg/dL Phosphorus 3.4 (2.6-4.7) mg/dL Magnesium 1.7 L (1.8-2.4) mg/dL Total Bilirubin 0.3 (0.2-1.0) mg/dL AST 15 (15-37) U/L ALT 22 (16-63) U/L Alkaline Phosphatase 111 (46-116) U/L Troponin I 106 H* 105 H* (<or=76) ng/L Total Protein 5.3 L (6.4-8.2) g/dL Albumin 2.4 L (3.4-5.0) g/dL [id number] Documentation Fingerstick Glucose Start: 02/12/25 16:08 Freq: Status: Complete Protocol: Activity Type Activity Date Activity User E-sign Co-sign Detail Recorded Client Recorded Date Recorded By Document 02/12/25 17:44 BKG DAEMON(7) NVT-BG05 02/12/25 17:45 BKG DAEMON(8) Fingerstick Glucose Start: 02/12/25 19:22 Freq: .Q1H Status: Complete Protocol: Activity Type Activity Date Activity User E-sign Co-sign Detail Recorded Client Recorded Date Recorded By Document 02/13/25 08:06 BKG DAEMON(9) NVT-BG05 02/13/25 08:12 BKG DAEMON(10) Fingerstick Glucose Start: 02/13/25 09:14 Freq: AC & HS Status: Active Protocol: Activity Type Activity Date Activity User E-sign Co-sign Detail Recorded Client Recorded Date Recorded By Document 02/14/25 16:43 BKG DAEMON(10) NVT-BG05 02/14/25 16:45 BKG DAEMON(10) Intake and Output - 24 Hour Total 02/12/25 13:40 thru 02/14/25 16:39 Intake Total 09430.632 Output Total 5650 Balance 5062.632 Weight 76.2 kg Intake: IV 8582.632 Oral 2130 Output: Urine 5650 Other: Urine Color Pale Urine Appearance Clear Urine Odor Normal Comment bladder spasms w/incontinence and self caths q4hrs Falls Risk Assessment History of Falls No History 02/12/25 16:35 Contributing Factors No Factors 02/12/25 16:35 Ambulatory Aids Uses ambulatory device + 02/12/25 16:35 Tubes/Lines None 02/12/25 16:35 Gait Evaluation No gait disturbance 02/12/25 16:35 Cognition No cognitive impairment 02/12/25 16:35 Fall Total Score 30 02/12/25 16:35 Level of Risk Moderate Risk 02/12/25 16:35 Problems (Last Updated 02/12/25 @ 18:35 by Maggi Carey MD, [place]) STEFAN (acute kidney injury) (Acute) DKA (diabetic ketoacidosis) (Acute) Diabetes mellitus, new onset (Acute) 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 Information / Comments: Report received from: FIONA Sousa at approx 17:00
--- NOTE | 2025-02-14 17:23 | NUR.NOTE ---
Nursing Note: Pt Transferred from ICU to [facility] 230-1. Alert, oriented, pt in room eating dinner. Oriented to room, workflow, and call light system. Pt verbalizes understanding of when and how to alert staff of needs. Call light w/in reach of pt.
--- NOTE | 2025-02-14 19:22 | PGE_ITS ---
Date of Service Date of service: 02/14/25 Time of Service: 15:00 Assessment and Plan Assessment and plan (1) DKA (diabetic ketoacidosis): Status: Acute Assessment and plan: Patient newly diagnosed with DM, not on any medications yet Acidosis with ketonuria on arrival Admitted to ICU for DKA protocol with insulin drip, potassium correction, IV fluids, BMP q4h. NPO Downgraded to the floor with improvement. Insulin drip stopped Resolved (2) STEFAN (acute kidney injury): Status: Acute Assessment and plan: Resolved with fluid resuscitation (3) Diabetes mellitus, new onset: Status: Acute Assessment and plan: A1C above 11 Possible type 1 disease Protein C and insulin antibody pending Discussed likelihood of insulin dependence with patient Excellent PCP care, endocrinology consult to follow Appreciate senior health educator involvement Likely TDD 30u Feb 14 lengthy bedside teaching session to plan out the next 6 months He will have a CGM at discharge, will prescribe hypoglycemia regimen and likely once-daily basal dose to start with close PCP/endo followup (4) 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 Rowley is up in his wheelchair with many questions about his new DM alexandra gnosis and the ongoing plan. Expecting to discharge after steroid challenge tonight with DM teaching with patient and his tomorrow. Exam Narrative Exam Narrative: General: This is a very pleasant, thin man, wheelchair-bound, in no acute distress HEENT: Normocephalic, atraumatic. Dry mucous membranes. CV: Mild tachycardia. Systolic murmur as noted previously. Resp: CTAB Abd: Soft, NTND, +NBS MSK: BUE voluntary motion, paraplegic Neuro: Awake, alert, no focal deficits Objective Last Vital Signs Temp 36.4 C L 02/14/25 17:13 Pulse 86 02/14/25 17:13 Resp 16 02/14/25 17:13 BP 115/73 02/14/25 17:13 Pulse Ox 100 02/14/25 17:13 Laboratory Results - last 24 hr 02/13/25 02/14/25 23:20 05:30 WBC 5.31 RBC 4.07 L Hgb 11.8 L Hct 33.1 L MCV 81 MCH 29.0 MCHC 35.6 RDW 13.0 Plt Count 167 MPV 10.2 Sodium 142 Potassium 2.8 L* Chloride 107 Carbon Dioxide 29.2 Anion Gap 5.8 BUN 12 Creatinine 0.6 L Est GFR (CKD-EPI 2020) 118.34 Glucose 159 H Calcium 8.3 L Phosphorus 3.4 Magnesium 1.7 L Total Bilirubin 0.3 AST 15 ALT 22 Alkaline Phosphatase 111 Troponin I 106 H* Total Protein 5.3 L Albumin 2.4 L PAWSS Have you Been Recently Intoxicated or Drunk Within the Last 30 days?: No Have you Ever Experienced Previous Episodes of Alcohol Withdrawal?: No Have you ever Experienced Withdrawal Seizures?: No Have you ever Experienced Delirium Tremens(DT)s?: No Have you ever undergone Alcohol Rehabilitation Treatment (i.e, inpt ot outpatient treatment programs)?: No Have you ever Experienced Blackouts?: No Have you ever Combined Alcohol with other Downers within the last 90 days?: No Have you ever Combined Alcohol with any other Substance of Abuse during the last 90 days?: No Positive Blood Alcohol level on Presentation? [PCS.BAL]: No Evidence of Increased Autonomic Activity (i.e. HR>120, tremor, sweating, agitation, nausea)?: No Result: 0 Time Spent with Patient Time Spent with Patient: 35-49 minutes Time was spent: preparing to see the patient(eg.review tests), obtaining and/or reviewing separately otained hiistory, ordering medications,tests, procedures, referring, communicating with other health family member caretaker, indepentently interpreting results, counseling the patient and care coordination
[2025-02-14] MEDS: Protein Nutritional Supplement 16 GM 1 OUNCE PACKET PO (20:40)
[2025-02-14] MEDS: Patient's Own Medication 1 EACH MISC 75 EACH PO (20:47)
[2025-02-14] MEDS: Patient's Own Medication 1 EACH MISC PO (20:51)
[2025-02-14] MEDS: Dexamethasone 1 MG TAB PO (23:30)
[2025-02-15 03:28] VITALS: BP 126/73; PULSE 69; RESP 18; TEMP 36.5; O2SAT 95
[2025-02-15] MEDS: Levothyroxine 75 MCG TAB PO (05:44)
[2025-02-15] MEDS: POTASSIUM CHLORIDE/0.9% NACL 1,000 ML 125 MEQ IV (06:42)
[2025-02-15 06:48] LABS: HCT 31.5 % (40.0-50.0); HGB 10.9 g/dL (13.5-17.5); MCH 28.8 pg (27.0-33.0); MCHC 34.6 % (32.0-36.0); MCV 83 fL (80-95); MPV 10.0 fL (8.0-11.0); Platelet Count 134 10^3/uL (130-400); RBC 3.78 10^6/uL (4.36-5.78); RDW 13.2 % (11.8-14.1); RDW-SD 39.8 fL; WBC 5.22 10^3/uL (4.4-10.8)
[2025-02-15 07:21] LABS: Magnesium 1.9 mg/dL (1.8-2.4)
[2025-02-15 07:31] VITALS: BP 104/72; PULSE 79; RESP 17; TEMP 36.3; O2SAT 97
[2025-02-15] MEDS: Insulin Aspart 300 UNITS/3 ML PEN SC ×3 (08:06→17:19)
[2025-02-15] MEDS: Enoxaparin 40 MG/0.4 ML SYR SC (08:08)
[2025-02-15] MEDS: Protein Nutritional Supplement 16 GM 1 OUNCE PACKET PO (08:08)
[2025-02-15] MEDS: Baclofen 10 MG TAB 60 MG PO (08:09)
[2025-02-15] MEDS: Oxybutynin 5 MG TAB 10 MG PO (08:09)
[2025-02-15] MEDS: Donepezil 5 MG TAB 10 MG PO (08:11)
[2025-02-15] MEDS: amLODIPine 5 MG TAB PO (08:12)
[2025-02-15] MEDS: Normal Saline Flush 10 ML SYR IVP (08:14)
[2025-02-15 09:00] LABS: ALT 24 U/L (16-63); AST 15 U/L (15-37); Albumin 2.5 g/dL (3.4-5.0); Alkaline Phosphatase 118 U/L (46-116); Anion Gap 10.5 mmol/L (3-11); BUN 13 mg/dL (7-18); Bilirubin, Total 0.3 mg/dL (0.2-1.0); CO2 24.5 mmol/L (21.0-32.0); Calcium 8.2 mg/dL (8.5-10.1); Chloride 106 mmol/L (98-107); Estimated GFR 118.34 (mL/min/1.73m2); Glucose 298 mg/dL (74-106); Potassium 4.2 mmol/L (3.5-5.1); Sodium 141 mmol/L (136-145); Total Protein 5.4 g/dL (6.4-8.2)
[2025-02-15 09:07] LABS: ALT 24 U/L (16-63); AST 14 U/L (15-37); Albumin 2.5 g/dL (3.4-5.0); Alkaline Phosphatase 122 U/L (46-116); Anion Gap 7.9 mmol/L (3-11); BUN 13 mg/dL (7-18); Bilirubin, Total 0.3 mg/dL (0.2-1.0); CO2 28.1 mmol/L (21.0-32.0); Calcium 8.3 mg/dL (8.5-10.1); Chloride 105 mmol/L (98-107); Estimated GFR 112.95 (mL/min/1.73m2); Glucose 309 mg/dL (74-106); Potassium 4.5 mmol/L (3.5-5.1); Sodium 141 mmol/L (136-145); Total Protein 5.5 g/dL (6.4-8.2)
--- NOTE | 2025-02-15 09:29 | CMDISCH_ITS ---
Date of service: 02/15/25 Time of Service: 09:29 LACE Index Scoring Tool Questions: Length of Stay (in days): 3 Was the patient admitted via the E.D.?: Yes Comorbidities: Diabetes w/o Complication E.D. Visits: 1 Answers: Total Score: 8 Risk of Readmission: Low Risk Care Management Discharge Plan Reason for Hospitalization: DKA Discharge Plan: Jarod will be discharged home with new glucose monitoring equipment and education. He will follow up with his PCP, Endocrinology, clinical document improvement educator and plan of care. He will transport home via private vehicle with his . Patient/Family Education Needs: Review of discharge instructions, limitations, medications, diet, glucose monitoring and control. follow up plan and discuss Ask Me Three
[2025-02-15 11:41] VITALS: BP 134/82; PULSE 76; RESP 17; TEMP 37; O2SAT 98
--- NOTE | 2025-02-15 13:36 | W.DIABETESNO ---
Date of service: 02/15/25 Time of Service: 13:36 Diabetes Note Reason for Visit: discharge planning with provider and NOTE: follow up with Jarod twice today - affixed CGM (good for 10 days or glucose data) and showed how to read/use along with handout reviewing balanced meals and general breakdown of carb and non carb food choices. Reviewed about 13 carb servings a day is a good starting goal but emphasized quality of these choices (ie high fiber minimally processed) Jarod discharging later today on 20u basal insulin qAM to begin with and managment will progress as labs are received and works with endocrinology and myself to work with meds/diet for support a healthier glucose range. Emphasis given today to avoid hypo and correct if <70. Family has my contact information and expected to call me with any questions or need for continued outpatient education Time Spent in Nutritional Counseling and Treatment: 30 min
--- NOTE | 2025-02-15 14:20 | W.PM.DS.N ---
Date of service: 02/15/25 Time of Service: 14:00 DS: Diagnosis Discharge Diagnosis (1) DKA (diabetic ketoacidosis): Status: Resolved Asessment and Plan: Patient newly diagnosed with DM, not on any medications yet Acidosis with ketonuria on arrival Admitted to ICU for DKA protocol with insulin drip, potassium correction, IV fluids, BMP q4h. NPO Downgraded to the floor with improvement. Insulin drip stopped Resolved (2) STEFAN (acute kidney injury): Status: Resolved Asessment and Plan: Resolved with fluid resuscitation (3) Diabetes mellitus, new onset: Status: Acute Asessment and Plan: A1C above 11 Possible type 1 disease Protein C and insulin antibody pending Discussed likelihood of insulin dependence with patient Excellent PCP care, endocrinology consult to follow Appreciate informatics educator involvement Likely TDD 30u Feb 14 lengthy bedside teaching session to plan out the next 6 months He will have a CGM at discharge, will prescribe hypoglycemia regimen and likely once-daily basal dose to start with close PCP/endo followup (4) Corazon thyroiditis: Status: Acute Asessment and Plan: Recent diagnosis, continue levothyroxine (5) Paraplegia following spinal cord injury: Status: Chronic Asessment and Plan: Patient may straight cath (6) Essential hypertension: Status: Chronic Asessment and Plan: Continue home regimen (7) Vitiligo: Status: Chronic Asessment and Plan: Additional evidence of autoimmunity Discharge Plan Disposition Patient Disposition: Home Condition: Fair Discharge Details Reason For Visit: DKA Admit Date/Time: 02/12/25 15:47 Admit Provider: Luis Armando Carrasquillo Attending Provider: Luis Armando Carrasquillo Primary Care Provider: Maggi Carey [facility] Hospital Course: Jarod Rowley is a 49 year old man presenting February 12, sent in from clinic for BG over 400 after new diagnosis of DM in the setting of multiple new autoimmune syndromes. He was found to be in DKA and was admitted to the ICU. DKA resolved in the first hospital day. As his DM is suspected to be type 1, his initial insulin regimen was difficult to stabilize. He has now been established on a safe insulin regimen for home use, and has actively participated in multiple teaching sessions with school traffic supervisor and hospitalist. He has excellent PCP care. Home Meds and New Rx's Prescriptions: New insulin glargine-aglr 100 unit/mL (3 mL) insulin pen 20 unit subcut QAM Qty: 15 0RF dextrose [Glucose Gel] 40 % gel 10 g PO Q15M MDD 100 grams PRN (Reason: hypoglycemia) Qty: 300 0RF Rx Instructions: until symptoms of low blood sugar are controlled (DME) needle (disp) Needle See Rx Instructions .Route Qty: 500 0RF Rx Instructions: Please substitute correct gauge for insulin pen product Continued hyoscyamine sulfate 0.375 mg tablet extended release 12 hr 0.375 mg PO BID Qty: 180 11RF Rx Instructions: 1 tabs BID oxybutynin chloride 5 mg tablet 10 mg PO BID Qty: 360 11RF imipramine HCl 25 mg tablet 50 mg PO BID Qty: 360 11RF (DME) Bard Coude Tip Catheter 1 EACH misc 1 ea Miscellaneous 5X DAY Qty: 250 11RF Rx Instructions: 14 [place] sildenafil [Viagra] 100 mg tablet 100 mg PO DAILY PRN (Reason: sexual activity) Qty: 50 4RF ergocalciferol (vitamin D2) 1,250 mcg (50,000 unit) capsule 50,000 unit PO QWEEK Qty: 13 4RF amlodipine 5 mg tablet 5 mg PO DAILY Qty: 90 6RF baclofen 20 mg tablet 60 mg PO BID Qty: 540 11RF levothyroxine 75 mcg tablet 75 mcg PO DAILY Qty: 90 6RF donepezil 10 mg tablet 10 mg PO DAILY Qty: 30 4RF Gemtesa 75 mg tablet 75 mg PO DAILY Discontinued dexamethasone 1 mg tablet 1 mg PO ONCE Qty: 1 0RF Rx Instructions: take btwn 11PM -12midnight on and be certain to have blood drawn on Wed btwn 8-9 AM No Action insulin aspart U-100 [Novolog FlexPen U-100 Insulin] 100 unit/mL (3 mL) insulin pen See Rx Instructions subcut TID Qty: 15 5RF Rx Instructions: 10U before meals; give additional 5 subcutaneously if BS >350 amoxicillin-pot clavulanate 875-125 mg tablet 1 tab PO BID Qty: 14 0RF furosemide [Lasix] 20 mg tablet 20 mg PO DAILY Qty: 30 0RF Discharge Instructions Stand Alone Forms: Nursing Discharge Form Referrals: Maggi Carey MD, [place] [Primary Care Provider, Medicine] Referral Note: Your PCP will call you to schedule a follow up appointment. Activity:: Activity as Tolerated Equipment/Supplies:: Insulin and needles Diet:: Carb Counting Discharge Orders Discharge Orders: Discharge Order (Routine); Ordered 02/15/25 Ordered By: Luis Armando Carrasquillo Discharge Data Discharge Date/Time-TO BE ENTERED AT DEPARTURE: 02/15/25 18:59 DS: Summary Time Spent with Patient providing and/or coordinating discharge services: Greater than 30 minutes Status at Discharge Functional status at discharge: wheelchair bound Overall status at discharge: patient is back to baseline Mental Status: mental status grossly normal Speech and Movement: speech and movement normal Mood: congruent mood Affect: normal affect Exam Narrative Exam Narrative: General: This is a very pleasant, thin man, wheelchair-bound, in no acute distress HEENT: Normocephalic, atraumatic. Dry mucous membranes. CV: Mild tachycardia. Systolic murmur as noted previously. Resp: CTAB Abd: Soft, NTND, +NBS MSK: BUE voluntary motion, paraplegic Neuro: Awake, alert, no focal deficits Psych Mental Status: mental status grossly normal Speech and Movement: speech and movement normal Mood: congruent mood Affect: normal affect DS: Data Vitals/I&O Vitals and I&O: Vital Signs Temperature 37.0 C 02/15/25 11:41 Temperature Source Skin 02/15/25 11:41 Pulse 76 02/15/25 11:41 Pulse 79 02/14/25 17:00 Respiratory Rate 17 02/15/25 11:41 Respiratory Effort Normal 02/12/25 16:35 Respiratory Depth Normal 02/12/25 16:35 Respiratory Pattern Normal 02/12/25 16:35 Blood Pressure 134/82 02/15/25 11:41 Blood Pressure Mean 99 02/15/25 11:41 Blood Pressure Position Supine 02/12/25 16:35 Pulse Oximetry 98 02/15/25 11:41 Oxygen Delivery Method Room Air 02/15/25 11:41 Oxygen Flow Rate 0 02/15/25 11:41 Pain Level 0 02/15/25 11:41 Intake & Output 02/14/25 02/15/25 02/15/25 23:59 11:59 23:59 Intake Total 1977.083 / 5414.583 1000 / 1000 Output Total 850 / 3200 2150 / 2150 Balance 1127.083 / 2214.583 -1150 / -1150 Intake: IV 1537.083 / 4734.583 1000 / 1000 Oral 440 / 680 Output: Urine 850 / 3200 2150 / 2150 Other: Urine Color Pale Yellow Yellow Urine Appearance Clear Clear Comment self cath Data Completed and Pending Labs on day of discharge: Labs from last 24 hours 02/15/25 02/15/25 02/13/25 08:12 06:15 06:10 WBC 5.22 RBC 3.78 L Hgb 10.9 L Hct 31.5 L MCV 83 MCH 28.8 MCHC 34.6 RDW 13.2 Plt Count 134 MPV 10.0 Sodium 141 141 Potassium 4.5 4.2 D Chloride 105 106 Carbon Dioxide 28.1 24.5 Anion Gap 7.9 10.5 BUN 13 13 Creatinine 0.7 0.6 L Est GFR (CKD-EPI 2020) 112.95 118.34 Glucose 309 H 298 H C-Peptide ng/ml 0.2 L Calcium 8.3 L 8.2 L Phosphorus 3.6 Magnesium 1.9 Total Bilirubin 0.3 0.3 AST 14 L 15 ALT 24 24 Alkaline Phosphatase 122 H 118 H Total Protein 5.5 L 5.4 L Albumin 2.5 L 2.5 L Cortisol Pending [facility] All Active Problems (Updated 02/18/25 @ 18:28 by Luis Armando Carrasquillo MD) Wound, open, foot (Acute) Diabetes mellitus, new onset (Acute) Corazon thyroiditis (Acute) Vitiligo (Chronic 07/28/17) Essential hypertension (Chronic) Paraplegia following spinal cord injury (Chronic) Thyroid nodule (Acute) Sleep apnea (Acute) Nasal airway abnormality (Acute) Hypothyroid (Chronic) Memory deficit (Acute) Auditory processing disorder (Acute) Rotator cuff tear, right (Acute) Left rotator cuff tear (Acute) Weight gain (Acute) Shoulder pain (Acute) Burn of leg, left (Acute) Tachycardia (Acute) Stress due to family tension (Acute) Bladder spasm (Acute) secondary to spinal cord injury Carpal tunnel syndrome, bilateral (Acute) Tendinitis of long head of biceps brachii of both shoulders (Acute) Toe gangrene (Acute) Annual physical exam (Acute 06/11/15) Chronic left shoulder pain (Chronic 12/17/15) Recurrent urinary tract infection (Chronic) Retention of urine (Chronic) Sensorineural hearing loss, bilateral (Chronic 08/22/15) Tinnitus of both ears (Chronic 08/22/15) Medical History (Updated 02/18/25 @ 18:28 by Luis Armando Carrasquillo MD) Weight disorder Vitamin D deficiency MRSA (methicillin resistant Staphylococcus aureus) (04/26/14) Family History Mother No problems noted. Father Diabetes Sister No problems noted. Social History Smoking/Tobacco Use Status: Former Tobacco Use Tobacco: How many years used: 20 Smokeless tobacco user: chewing tobacco and snuff Quit status: considering quitting Second Hand Exposure: Yes Smoking risk assessment performed?: Yes Alcohol Intake: current Alcohol Intake frequency: a few times a week Alcohol type: beer Details: 6 or more drinks monthly or less Drug use: Occasionally Substance use type: marijuana Details: stopped smoking marijuana 20 years ago Adopted: No Caregiver/Support person: No Household members: spouse Housing: house Communication Needs: Corrective Lenses Do you need help understanding health information?: Never Pets and animals: Yes Pets and animals: cat(s) and dog(s) Sexually active: Yes Do you think of yourself as: straight/heterosexual Current gender identity: male What is your relationship status?: How often do you talk on the phone with friends or family?: once per week How often do you get together with friends or relatives?: decline to answer How often do you attend scientologist or pentecostal services?: 4 or more times per year Do you belong to any clubs or organized social groups?: no Panel score (0-1 are the most socially isolated patients): 2 Frequency: 1-2 times per week [place]/Zoroastrianism: Oriental Orthodox Special [place] needs: No Seatbelt use: always Helmet use: Yes Helmet use: always Drive intox or ride w/intox day haul or farm charter bus driver: No Time Spent with Patient Time Spent with Patient: 45-69 minutes Time was spent: preparing to see the patient(eg.review tests), obtaining and/or reviewing separately otained hiistory, ordering medications,tests, procedures, referring, communicating with other health group care worker, indepentently interpreting results, counseling the patient and care coordination
--- NOTE | 2025-02-15 14:42 | CHAPLAIN ---
I had a brief visit with Jarod as he was getting ready to get cleaned up for the day. He said he believes he's being discharged later today. I explained my role and offered support.
[2025-02-20 16:41] LABS: Lab Add On Test DONE
== END 2025-02-15 18:59 | disposition home or self-care (01) | DRG 638 ==
LOC: ER 13:48 → ICU 16:32 → MS 02-14 17:45
PROVIDERS: Family Medicine; Admitting Provider Family Medicine; Emergency Provider Emergency Medicine; PCP Family Medicine; Responsible Provider Family Medicine; Visit Provider Family Medicine
DX: E10.10 Type 1 diabetes mellitus with ketoacidosis without coma (principal); E27.1 Primary adrenocortical insufficiency; N17.9 Acute kidney failure, unspecified; G82.20 Paraplegia, unspecified; E06.3 Autoimmune thyroiditis; L80 Vitiligo; I10 Essential (primary) hypertension; N32.89 Other specified disorders of bladder; R41.3 Other amnesia; H90.3 Sensorineural hearing loss, bilateral; E55.9 Vitamin D deficiency, unspecified; Z99.3 Dependence on wheelchair; L89.620 Pressure ulcer of left heel, unstageable; L89.612 Pressure ulcer of right heel, stage 2; L89.519 Pressure ulcer of right ankle, unspecified stage
CPT/HCPCS: 00123; 36415; 36416; 80048; 80053; 80061; 82533; 82805; 82962; 85027; 96361; 96365; 99291; J1650; 71046; 81003; 81015; 83036; 83525; 83605; 83735; 84100; 84484; 84681; 85025; 86337; 93005; 93010; 99223; 99232; 99239; J1815; J3475; J3490; J8540

== ENCOUNTER 2025-03-06 16:29 | Outpatient (CLI) | payer BC, SELFPAY ==
--- NOTE | 2025-03-07 15:19 | W.PFT ---
Date of service: 03/06/25 Time of Service: 15:03 Pulmonary Function Test Result Indications: Dyspnea Impression 1. Good patient effort was noted. ATS standards for reproducibility were met. 2. Normal spirometry. 3. Patient declined lung volume testing 4. DLCO was normal indicating normal alveolar gas exchange
== END 2025-03-06 16:30 | disposition home or self-care (01) ==
LOC: RT 16:29
PROVIDERS: PCP Family Medicine; Visit Provider Internal Medicine Pulmonary Disease
DX: R06.02 Shortness of breath (principal)
CPT/HCPCS: 94010; 94729

== ENCOUNTER 2025-03-19 19:32 | Outpatient (REF) | payer BC, SELFPAY ==
[2025-03-19 20:20] LABS: Glucose Negative (Negative)
[2025-03-19 20:28] LABS: C & S Indicated? Yes; RBC 0-2 HPF (0-2); WBC 20-50 HPF (0-5)
== END 2025-03-19 19:33 | disposition home or self-care (01) ==
LOC: LBN 19:32
PROVIDERS: PCP Family Medicine; Visit Provider Family Medicine
DX: N39.0 Urinary tract infection, site not specified (principal)
CPT/HCPCS: 87077; 81003; 81015; 87086; 87186

== ENCOUNTER 2025-03-26 07:14 | Outpatient (CLI) | payer BC, SELFPAY ==
--- NOTE | 2025-03-26 05:15 | DI.NM_ITS ---
APPROVED REPORT Exam: Pharmacologic Patient Location: Out-Patient Room/Bed: Stress Nurse: Latoya Leos RN Ordering Provider:KAREN MORALES, Contact Number: [phone] BMI: 25.54 Baseline Rhythm: Sinus Rhythm Medical History Medical History: Weight disorder, MRSA, DMT1, jorge luis thyroiditis, HTN, paraplegia following spinal cord injury, memory deficit, auditory processing disorder, hypothyroid Cardiac Medications: Amloidpine, baclofen, donepezil, lasix, hycosyamine sulfate, imipramine HCL, insulin glargine-aglr, levothyroxine, insulin aspart, oxybutin chloride, sildenafil, gemlesa Allergies: NKA Cardiac Risk Factors: Diabetes, HTN, former smoker Previous Cardiac Procedures: None Pretest Chest Pain Characteristics: None Exercise History: Indeterminate Physical Disabilities: Paraplegic Lung Sounds: Clear to auscultation Heart Sounds: Regular Stress Test Details Test: Pharmacologic stress testing performed using 0.4 mg of regadenoson per 5 mL given IV over 10 seconds. Reason for pharmacologic stress test: physical limitation. Nuclear Acquisition: Rest Tc-99m/Stress Tc-99m 1 day Rest Isotope: Tc-99m Sestamibi. Dose: 10.0 Date: 03/26/2025 Injection Time: 0845 Stress Isotope: Tc-99m Sestamibi. Dose: 30.0 Date: 03/26/2025 Injection Time: 1007 HR Resting HR Supine: 67 bpm Max Heart Rate (APMHR): 171 bpm Target HR (85% APMHR): 145 bpm Max HR Achieved: 88 bpm % of APMHR: 51 Recovery HR: 73 bpm BP Resting BP Supine: 102/82 mmHg Max BP: 108/50 mmHg Recovery BP: 102/64 mmHg ECG Resting ECG: Sinus Rhythm Ectopy: None Stress ECG: Sinus Rhythm ST Change: Nondiagnostic low heart rate Arrhythmia: None Recovery ECG: Sinus Rhythm Recovery ST Change: Nondiagnostic low heart rate Recovery Arrhythmia: None Clinical Stress Symptoms: None Angina Score: None Rate Pressure Product: [id number] Stress ECG Conclusion 1. Resting electrocardiogram was normal 2. Patient underwent testing using pharmacologic stress with regadenoson 3. Peak heart rate achieved was 51% of maximal predicted for age 4. Electrocardiographic portion of the test was nondiagnostic 5. See MPI report Stress Test Summary STAGE HR BP SpO2 Symptoms NOTES Supine 67 102/82 98% 1 min post Lexiscan injection 85 108/50 99% 3 min post Lexiscan injection 80 102/62 99% 6 min post Lexiscan injection 73 102/64 98% Patient unable to use treadmill as he is a paraplegic. Patient denied all symptoms and proceeded to imaging via wheelchair in no apparent distress. MPI Conclusion Myocardial perfusion is normal. There is no ischemia or evidence of prior infarction Ejection fraction is 57% with normal wall motion
--- NOTE | 2025-03-26 07:30 | DI.US_ITS ---
APPROVED REPORT EXAM: Comprehensive 2D, Doppler, and color-flow Echocardiogram Patient Location: Out-Patient [employer] Specialist: Rico Eller RDCS (AE) Indications: Chest pain, SOB Other Information Study Quality: Fair Conclusion Normal left ventricular wall thickness and chamber size. Ejection fraction is 60 to 65%. Wall motion is normal Normal right ventricular size and function Both atria are normal in size The aortic valve is mildly sclerotic and trileaflet without stenosis or regurgitation There is no additional significant valvular disease Wall motion Left Ventricle The left ventricle is normal size. Left ventricular systolic function is normal. The left ventricular ejection fraction is within the normal range. There is normal left ventricular wall thickness. There is normal LV segmental wall motion. There is no ventricular septal defect visualized. LVEF is 60-65%. Right Ventricle The right ventricle is normal size. The right ventricular systolic function is normal. Atria The left atrium size is normal. The right atrium size is normal. The interatrial septum is intact with no evidence for an atrial septal defect. Aortic Valve The aortic valve is mildly sclerotic. Aortic valve is trileaflet. There is no aortic valvular stenosis. No aortic regurgitation is present. Mitral Valve The mitral valve is normal in structure. No evidence of mitral valve stenosis. Trace mitral regurgitation. Tricuspid Valve The tricuspid valve is normal in structure. There is no tricuspid valve stenosis. Trace tricuspid regurgitation. Pulmonic Valve The pulmonary valve is normal in structure. There is no pulmonic valvular stenosis. There is no pulmonic valvular regurgitation. Great Vessels The aortic root is normal in size. The ascending aorta is normal in size. Aortic arch is normal in caliber. IVC is normal in size and collapses >50% with inspiration. Pericardium There is no pericardial effusion. 2D Dimensions IVSD d PLAX 0.83 cm M: 0.6-1.2 Ao Root d 3.02 cm M: 3.1 - 3.7 LVPW d PLAX 0.76 cm M: 0.6 - 1.2 LVID d PLAX 4.56 cm M: 4.2 - 5.8 LVDs 2.99 cm M: 2.5 - 4.0 LV EF Teichholz 63.7 % FS 34.52 % LV EDV (Teich) 95.3 mL LV ESV (Teich) 34.6 mL Stroke Vol Index (Teich) 31.97 M-Mode TAPSE 2.42 cm (M/F) >1.7 Auto EF LV EDV A4C 89.2 mL LV EDV A2C 83.8 mL LV EDV BP 86.3 mL LV ESV A4C 34.5 mL LV ESV A2C 32.3 mL LV ESV BP 32.6 mL LVEF(%) A4C 61.3 % LVEF(%) A2C 61.5 % LVEF(%) BP 62.3 % LV SV A4C 54.7 ml LV SV A2C 51.6 ml LV SV BP 53.7 ml LV CO A4C 4.4 L/min LV CO A2C 4.0 L/min LV CO BP 4.2 L/min HR A4C 81.09 BPM HR A2C 78.09 BPM LV EDV Index (BP) LA Volume LA Length A4C 3.8 cm LA Length A2C 4.6 cm LA Area A4C s 8.68 cm2 LA Area A2C s 11.15 cm2 LA Vol A4C A-L 16.90 mL LA Vol A2C A-L 23.08 mL LA Vol Biplane A-L 21.7 mL LA Vol/BSA A4C A-L LA Vol/BSA A2C A-L LA Vol/BSA BP A-L 11.4 mL/m2 LA Vol A4C MOD 16.6 mL LA Vol A2C MOD 21.2 mL LA Vol BP MOD 20.5 mL RA Volume RA Area A4C 6.3 cm2 RA ESV A4C (A-L) 11.1mL RA Vol/BSA A4C A-L RA Length A4C 3.1 cm RA ESV A4C (MOD) 11.0mL LV Diastology MV E' medial 0.123 (>0.07 m/s) MV E Vmax 1.03 (0.4-1.3 m/s) MV E/E' MED 8.33 (<14) MV A Vmax 0.85 (0.4-1.3 m/s) MV E' lateral 0.122 (>0.1 m/s) E/A Ratio 1.2 MV E/E' LAT 8.43 (<14) MV E' Average 0.122 m/s MV E/E'(average) 8.38 Aortic Valve AoV Vmax 1.47 m/s LVOT Vmax 1.45 m/s AoV Peak Grad 8.6 mmHg LVOT Peak Grad 8.4 mmHg AoV Area (Vmax) 2.91 cm2 LVOT VTI 0.267 m AoV VTI 0.283 m LVOT Mean Grad 4.2 mmHg AoV Mean Sergei. 1.02 m/s LVOT SV 78.79 mL AoV Mean Grad 4.8 mmHg LVOT Diam s 1.90 cm AoV Area (VTI) 2.79 cm2 AV Regurg Peak Gr. 8.63 mmHg Velocity Ratio 0.99 Mitral Valve MV DT 273 (160-240 msec) Pulmonary Valve PV Vmax 0.90 (0.5-1.5 m/s) PV Peak Grad 3.2 mmHg PV Mean Sergei 0.66 m/s PV Mean Grad 2.0 mmHg
[2025-03-26] MEDS: Regadenoson 0.4 MG/5 ML SYR IVP (10:12)
== END 2025-03-26 07:34 ==
LOC: DI 07:15
PROVIDERS: PCP Family Medicine; Visit Provider Internal Medicine Cardiovascular Disease
DX: R07.9 Chest pain, unspecified (principal)
CPT/HCPCS: 78452; 93017; 93306; J2785

== ENCOUNTER 2025-04-04 04:07 | Outpatient (CLI) | payer BC, SELFPAY ==
[2025-04-06 10:53] LABS: Adrenocorticotropic Hormone, P 18 pg/mL
== END 2025-04-04 04:08 | disposition home or self-care (01) ==
LOC: LBO 04:07
PROVIDERS: Student in an Organized Health Care Education/Training Program; PCP Family Medicine; Visit Provider Family Medicine
DX: R73.09 Other abnormal glucose (principal)
CPT/HCPCS: 36415; 82533; 82024; 86337

== ENCOUNTER 2025-06-01 21:16 | Outpatient (REF) | payer BC, SELFPAY ==
[2025-06-01 21:42] LABS: Glucose Negative (Negative)
[2025-06-01 21:52] LABS: C & S Indicated? Yes; WBC >50 HPF (0-5)
== END 2025-06-01 21:17 | disposition home or self-care (01) ==
LOC: LBN 21:16
PROVIDERS: PCP Family Medicine; Visit Provider Family Medicine
DX: R30.0 Dysuria (principal)
CPT/HCPCS: 87077; 81003; 81015; 87086; 87186